=== PATIENT | male | born 1970 | race Caucasian/White ===

== ENCOUNTER 2017-08-21 19:56 | Emergency (ER) | payer MEDICAID ==
--- NOTE | 2017-08-21 20:11 | EDM.PDOC ---
ED HPI GENERAL MEDICAL PROBLEM - General Chief Complaint: ENT Problem Stated Complaint: nose bleed Time Seen by Provider: 08/21/17 19:56 Source of Information: Reports: Patient. Denies: Old Records (No [facility] records available) History Limitations: Reports: No Limitations - History of Present Illness INITIAL COMMENTS - FREE TEXT/NARRATIVE: The patient drove himself to the emergency room for evaluation of recurrent bilateral epistaxis with some clot formation today with symptoms starting at about 22:00 hours yesterday evening. Note that the patient did have a bilateral frontal headache at that time and did take 4 baby aspirin tablets prior to onset of his epistaxis as treatment for his headache. He does not have a previous history of chronic anticoagulation use, recurrent epistaxis, etc.. He did try ice packs to the nose and nasal packing with tissues with no improvement in symptoms. No history of recent visual changes, diplopia, change in mental status, or other change in neurological status. The patient also denies any recent fever, cough, wheezing, dyspnea, etc.. No recent history of abdominal pain, heartburn, nausea, diarrhea, melena, gross hematochezia, or any food intolerance, including fatty foods, etc.. The patient denies any chest pain /pressure, heart flutter, dizziness, orthostasis, orthopnea, diaphoresis, paresthesias, recent decreased exercise tolerance, or any other anginal-type symptoms. He patient denies recent injury, any pain or headache at this time. Note that he has been noncompliant with his blood pressure medication for at least one month. Onset: Gradual Onset Date: 08/20/17 Onset Time: 22:00 Duration: Getting Worse, Intermittent Location: Reports: Lower Extremity, Left (No pain) Quality: Reports: Same as Previous Episode (Distant episode of epistaxis) Severity: Moderate Improves with: Reports: None Worsens with: Reports: None Context: Reports: Other (As above) Associated Symptoms: Reports: Headaches (Resolved as above). Denies: Confusion , Chest Pain, Cough, Diaphoresis, Fever/Chills, Malaise, Nausea/Vomiting, Shortness of Breath, Weakness Treatments CORRECTIVE THERAPY AIDE: Reports: Aspirin (As above), Cold Therapy (As above), Home Treatments (As above) - Related Data Allergies Allergy/AdvReac Type Severity Reaction Status Date / Time fentanyl Allergy Other Verified 08/21/17 20:22 Home Meds: Home Meds . [Unable to Verify Home Med List] 08/21/17 [History] Past Medical History HEENT History: Reports: Impaired Vision, Other (See Below). Denies: Allergic Rhinitis, Cataract, Glaucoma, Hard of Hearing, Macular Degeneration, Retinal Detachment Other HEENT History: Patient wears glasses Cardiovascular History: Reports: Hypertension, Other (See Below). Denies: Afib , Aneurysm, Arrhythmia, Blood Clots/VTE/DVT, CAD, Heart Failure, Heart Murmur, High Cholesterol, FL, PVD, Syncope Other Cardiovascular History: Patient does not know cholesterol status Respiratory History: Reports: Intubation, Previous. Denies: Asthma, COPD, Intubation, Difficult, PE, Pneumothorax, Sleep Apnea, TB Gastrointestinal History: Reports: None. Denies: Celiac Disease, Cholelithiasis , Chronic Constipation, Chronic Diarrhea, Fecal Incontinence, Gastritis, GERD, GI Bleed, Hepatitis, Inflammatory Bowel Disease, Irritable Bowel Syndrome, Jaundice, Pancreatitis, PUD Genitourinary History: Reports: Chronic Renal Insuffiency, Renal Disease, Other (See Below). Denies: BPH, Dialysis, Renal Calculus, STD, Urinary Incontinence, UTI, Recurrent Other Genitourinary History: Stage III chronic renal insufficiency with no NSAIDs use recommended Musculoskeletal History: Reports: Arthritis, Back Pain, Chronic, Neck Pain, Chronic, Osteoarthritis. Denies: Amputation, Fracture, Gout, RA, SLE Neurological History: Reports: Neuropathy, Peripheral. Denies: Cerebral Aneurysms, Concussion, CVA, Headaches, Chronic, Head Trauma, Migraines, MS, Parkinson's, Seizure, TIA Psychiatric History: Reports: Anxiety. Denies: Abuse, Victim of, ADD, ADHD, Addiction, Depression, Psych Hospitalization(s), PTSD, Suicide Attempt, Suicidal Ideation Endocrine/Metabolic History: Reports: None. Denies: Diabetes, Type I, Diabetes , Type II, Diabetes Mellitus, Type 3c, Hypothyroidism, IDDM Hematologic History: Reports: Other (See Below). Denies: Anemia, Blood Transfusion(s), Iron Deficiency Other Hematologic History: Possible polycythemia Immunologic History: Reports: None. Denies: AIDS, HIV, SLE Oncologic (Cancer) History: Reports: None. Denies: Basal Cell Carcinoma, Hodgkin's Lymphoma, Leukemia, Lymphoma, Malignant Melanoma, Non-Hodgkin's Lymphoma, Squamous Cell Carcinoma Dermatologic History: Reports: None. Denies: Eczema, Psoriasis - Infectious Disease History Infectious Disease History: Reports: Chicken Pox. Denies: C-Difficile, Measles , Meningitis, Mononucleosis, MRSA, Mumps, Pertussis (Whooping Cough), Rheumatic Fever, Rubella, Scarlet Fever, Shingles, TB, VRE - Past Surgical History Head Surgeries/Procedures: Reports: None HEENT Surgical History: Reports: Oral Surgery, Other (See Below). Denies: Adenoidectomy, Cataract Surgery, Eye Surgery, Laser Surgery, LASIK, Myringotomy w Tube(s), Naso-Sinus Surgery, Tonsillectomy Other HEENT Surgeries/Procedures: Warren teeth extraction 4 in 2017 Cardiovascular Surgical History: Reports: None. Denies: Varicose Respiratory Surgical History: Reports: Other (See Below). Denies: Thoracentesis Other Respiratory Surgeries/Procedures: Rib resection for use in spinal surgery as below GI Surgical History: Reports: None. Denies: Appendectomy, Cholecystectomy, Colonoscopy, EGD, Hernia, Abdominal, Hernia, Inguinal, Hernia Repair/Other Male Surgical History: Reports: Circumcision, Other (See Below). Denies: Vasectomy Other Male Surgeries/Procedures: Circumcision as an infant Endocrine Surgical History: Reports: None. Denies: Thyroid Biopsy Neurological Surgical History: Reports: C-Spine, Spinal Fusion, Other (See Below ). Denies: Discectomy, Laminectomy, Lumbar Spine, Sacral Spine, Vertebroplasty Other Neurological Surgeries/Procedures: C1-C2 spinal fusion in February 2013 with previous additional C5-7 spinal fusion July 2012 secondary to Workmen's Compensation injury Musculoskeletal Surgical History: Reports: Carpal Tunnel, Ganglion Cyst, Other ( See Below). Denies: Arthroscopic Procedure, Joint Replacement, ORIF, Shoulder Surgery Other Musculoskeletal Surgeries/Procedures:: Ganglion cyst removal from his wrists bilaterally at age 13 Oncologic Surgical History: Reports: None Dermatological Surgical History: Reports: None Social & Family History - Tobacco Use Smoking Status *Q: Current Every Day Smoker Tobacco Use Within Last Twelve Months: Cigarettes Years of Tobacco use: 30 Packs/Tins Daily: 2 Packs/Tins Daily Comment: Started smoking cigarettes at age 16 and started using chewing tobacco at age 12 with no chewing tobacco use since age 42 and maximum use of 1 tin per day Used Tobacco, but Quit: No Smoking Cessation Information Provided To Patient: Yes Second Hand Smoke Exposure: No Second Hand Smoke Education Provided: No - Caffeine Use Caffeine Use: Reports: Coffee (1 1/2 pots per day), Soda (1 soda per day). Denies: Energy Drinks, Tea - Alcohol Use Alcohol Use History: Yes Days Per Week of Alcohol Use: 0 Number of Drinks Per Day Comment: 2 previous DWIs last in 2001 with no alcohol use since 2017. He denies previous alcohol treatment, abuse, etc. Alcohol Use in Last Twelve Months: No - Recreational Drug Use Recreational Drug Use: No Drug Use in Last 12 Months: No Recreational Drug Type: Denies: Amphetamines (Speed), Cocaine, Flunitrazepam, Heroin, Inhalants (Glues, Solvents, Aerosols), LSD (Acid), Marijuana/Hashish, Methamphetamine, Morphine, Oxycodone - Living Situation & Occupation Living situation: Reports: Single (2 children), Alone Occupation: Disabled (Disability since 2011 secondary to a Workmen's Compensation injury when a pipe hit his neck with history of chronic neck pain and surgeries as above) ED ROS ENT - Review of Systems Review Of Systems: ROS reveals no pertinent complaints other than HPI. ED EXAM, ENT - Physical Exam Exam: See Below Exam Limited By: No Limitations General Appearance: Alert, WD/WN, No Apparent Distress Eye Exam: Bilateral Eye: EOMI, Normal Inspection (No nystagmus. Patient wearing glasses), PERRL Ears: Normal External Exam, Normal Canal, Hearing Grossly Normal, Normal TMs Nose: Active Bleeding (Moderate bilateral epistaxis with bleeding site not visible secondary to active bleeding, including clots, etc. Nasal speculum exam was performed bilaterally.). No: Nasal Ecchymosis, Foreign Body Mouth/Throat: Normal Inspection, Normal Gums, Normal Lips, Normal Oropharynx, Normal Teeth Head: Atraumatic, Normocephalic. No: Facial Swelling, Facial Tenderness, Sinus Tenderness Neck: Normal Inspection, Supple, Non-Tender, Full Range of Motion. No: Lymphadenopathy (L), Lymphadenopathy (R), Thyromegaly Respiratory/Chest: No Respiratory Distress, Lungs Clear, Normal Breath Sounds, No Accessory Muscle Use, Chest Non-Tender. No: Pleural Rub, Retractions Cardiovascular: Normal Peripheral Pulses, No Edema, No Gallop, No JVD, No Murmur , No Rub, Tachycardia (Mild to moderate with regular rhythm). No: Gallop/S3, Gallop/S4, Friction Rub GI/Abdominal: Normal Bowel Sounds, Soft, Non-Tender, No Organomegaly, No Distention, No Abnormal Bruit, No Mass, Other (Obese). No: Guarding (Male) Exam: Deferred Rectal (Males) Exam: Deferred Back: Normal Inspection, Full Range of Motion. No: CVA Tenderness (L), CVA Tenderness (R), Muscle Spasm Extremities: Normal Inspection, Normal Range of Motion, Non-Tender, No Pedal Edema, Normal Capillary Refill Neurological: Alert, Oriented, CN II-XII Intact, Normal Cognition, Normal Gait, No Motor/Sensory Deficits Psychiatric: Normal Affect, Normal Mood Skin: Warm, Dry, Intact, Normal Color, No Rash. No: Diaphoretic, Ecchymosis, Jaundice, Petechiae, Wound/Incision Lymphatic: No Adenopathy ED ENT PROCEDURES - Epistaxis Procedure Indication: Epistaxis, Uncontrolled Recent anticoagulants/antiplatlets: Yes (Aspirin) Uncontrolled HTN: Yes Recent septal/nasal surgery: No Site of bleeding: Right Nare, Left Nare, Anterior Clearing of clots: Patient Blew Nose Topical Meds: Other (None) Ice pack to area: No Anterior Packing: Petrolatum Guaze Strip (Bilateral 1/2 inch) Complications: No Course - Vital Signs Last Recorded V/S: Last Vital Signs Temp 37.2 C 08/21/17 20:12 Pulse 99 08/21/17 22:22 Resp 17 08/21/17 22:22 BP 174/97 H 08/21/17 22:22 Pulse Ox 98 08/21/17 22:22 Vital Signs - 24 hr 08/21/17 08/21/17 08/21/17 20:12 20:40 21:00 Temperature [ 37.2 C Temporal] Pulse, 114 H 109 H 92 Peripheral [ Left Pulse Oximetry] Respiratory 22 H 19 20 Rate Blood Pressure Blood Pressure 215/149 H [Left Upper Arm ] Blood Pressure 201/124 H 180/142 H [Right Upper Arm] O2 Sat by Pulse 97 97 96 Oximetry 08/21/17 08/21/17 08/21/17 21:15 21:28 21:30 Temperature [ Temporal] Pulse, 89 91 Peripheral [ Left Pulse Oximetry] Respiratory 19 24 H Rate Blood Pressure 188/108 H Blood Pressure [Left Upper Arm ] Blood Pressure 197/108 H 188/108 H [Right Upper Arm] O2 Sat by Pulse 95 95 Oximetry 08/21/17 08/21/17 08/21/17 21:43 21:58 22:22 Temperature [ Temporal] Pulse, 99 99 Peripheral [ Left Pulse Oximetry] Respiratory 25 H 17 Rate Blood Pressure 181/113 H Blood Pressure [Left Upper Arm ] Blood Pressure 181/113 H 174/97 H [Right Upper Arm] O2 Sat by Pulse 97 98 Oximetry - Orders/Labs/Meds Orders: Active Orders 24 hr Category Date Time Status Cardiac Monitoring [RC] . DIRECTED Care 08/21/17 20:25 Active Peripheral IV Care [RC] . DIRECTED Care 08/21/17 20:24 Active Nitroglycerin [Nitrostat] Med 08/21/17 21:28 Stat 0.4 mg SL ONETIME STA Nitroglycerin [Nitrostat] Med 08/21/17 21:53 Stat 0.4 mg SL ONETIME STA Sodium Chloride 0.9% [Saline Flush] Med 08/21/17 20:24 Active 10 ml FLUSH ASDIRECTED PRN Obtain Past Medical Record [OM.PC] Routine Oth 08/21/17 20:11 Active Peripheral IV Insertion Adult [OM.PC] Routine Oth 08/21/17 20:24 Ordered Medication Orders Nitroglycerin (Nitrostat) 0.4 mg SL ONETIME STA Stop: 08/22/17 21:29 Last Admin: 08/21/17 21:30 Dose: 0.4 mg Nitroglycerin (Nitrostat) 0.4 mg SL ONETIME STA Stop: 08/22/17 21:54 Last Admin: 08/21/17 21:58 Dose: 0.4 mg Sodium Chloride (Saline Flush) 10 ml FLUSH ASDIRECTED PRN PRN Reason: Keep Vein Open Last Admin: 08/21/17 21:12 Dose: 10 ml Admin: 08/21/17 20:49 Dose: 10 ml Labs: Laboratory Tests 08/21/17 08/21/17 08/21/17 Range/Units 20:38 20:38 20:38 WBC 11.8 H (4.0-10.2) K/uL RBC 5.67 H (4.33-5.41) M/uL Hgb 16.8 (13.1-16.8) g/dL Hct 48.0 (39.0-49.0) % MCV 84.7 (84.0-98.0) fL MCH 29.6 (28.2-33.3) pg MCHC 35.0 (31.7-36.0) g/dL RDW 14.2 H (11.2-14.1) % Plt Count 164 (150-350) K/uL Neut % (Auto) 64.9 (45.0-80.0) % Lymph % (Auto) 25.8 (10.0-50.0) % Towner % (Auto) 8.3 (2.0-14.0) % Eos % (Auto) 0.7 (0.0-5.0) % Baso % (Auto) 0.3 (0.0-2.0) % Neut # (Auto) 7.66 H (1.40-7.00) K/uL Lymph # (Auto) 3.04 (0.50-3.50) K/uL Towner # (Auto) 0.98 (0.00-1.00) K/uL Eos # (Auto) 0.08 (0.00-0.50) K/uL Baso # (Auto) 0.04 (0.00-0.20) K/uL PT 10.4 (9.8-11.7) SEC INR 1.0 APTT 23.6 (22.1-29.8) SEC Sodium 143 (136-145) mmol/L Potassium 3.2 L (3.5-5.1) mmol/L Chloride 103 (98-107) mmol/L Carbon Dioxide 33.2 H (21.0-32.0) mmol/L BUN 35 H (7-18) mg/dL Creatinine 1.64 H (0.51-1.17) mg/dL Est Cr Clr Drug Dosing 54.45 mL/min Estimated GFR (MDRD) 45 mL/min Glucose 160 H (74-106) mg/dL Lactic Acid (0.4-2.0) mmol/L Calcium 8.8 (8.5-10.1) mg/dL Total Bilirubin 0.4 (0.2-1.0) mg/dL AST 18 (15-37) U/L ALT 25 (12-78) U/L Alkaline Phosphatase 105 (46-116) IU/L Total Protein 7.3 (6.4-8.2) g/dL Albumin 3.4 (3.4-5.0) g/dL TSH, Ultra Sensitive 3.772 H (0.358-3.740) mIU/mL 08/21/17 Range/Units 20:38 WBC (4.0-10.2) K/uL RBC (4.33-5.41) M/uL Hgb (13.1-16.8) g/dL Hct (39.0-49.0) % MCV (84.0-98.0) fL MCH (28.2-33.3) pg MCHC (31.7-36.0) g/dL RDW (11.2-14.1) % Plt Count (150-350) K/uL Neut % (Auto) (45.0-80.0) % Lymph % (Auto) (10.0-50.0) % Towner % (Auto) (2.0-14.0) % Eos % (Auto) (0.0-5.0) % Baso % (Auto) (0.0-2.0) % Neut # (Auto) (1.40-7.00) K/uL Lymph # (Auto) (0.50-3.50) K/uL Towner # (Auto) (0.00-1.00) K/uL Eos # (Auto) (0.00-0.50) K/uL Baso # (Auto) (0.00-0.20) K/uL PT (9.8-11.7) SEC INR APTT (22.1-29.8) SEC Sodium (136-145) mmol/L Potassium (3.5-5.1) mmol/L Chloride (98-107) mmol/L Carbon Dioxide (21.0-32.0) mmol/L BUN (7-18) mg/dL Creatinine (0.51-1.17) mg/dL Est Cr Clr Drug Dosing mL/min Estimated GFR (MDRD) mL/min Glucose (74-106) mg/dL Lactic Acid 1.6 (0.4-2.0) mmol/L Calcium (8.5-10.1) mg/dL Total Bilirubin (0.2-1.0) mg/dL AST (15-37) U/L ALT (12-78) U/L Alkaline Phosphatase (46-116) IU/L Total Protein (6.4-8.2) g/dL Albumin (3.4-5.0) g/dL TSH, Ultra Sensitive (0.358-3.740) mIU/mL Meds: Medications Generic Name Dose Route Start Last Admin Trade Name Freq PRN Reason Stop Dose Admin Nitroglycerin 0.4 mg 08/21/17 21:28 08/21/17 21:30 Nitrostat SL 08/22/17 21:29 0.4 mg ONETIME STA Administration Nitroglycerin 0.4 mg 08/21/17 21:53 08/21/17 21:58 Nitrostat SL 08/22/17 21:54 0.4 mg ONETIME STA Administration Sodium Chloride 10 ml 08/21/17 20:24 08/21/17 21:12 Saline Flush FLUSH 10 ml ASDIRECTED PRN Administration Keep Vein Open Discontinued Medications Generic Name Dose Route Start Last Admin Trade Name Freq PRN Reason Stop Dose Admin Hydralazine HCl 10 mg 08/21/17 21:52 08/21/17 22:00 Apresoline IVPUSH 08/21/17 21:53 10 mg ONETIME ONE Administration Labetalol HCl 20 mg 08/21/17 20:25 08/21/17 20:48 Normodyne IVPUSH 08/21/17 20:26 20 mg ONETIME ONE Administration Protocol Labetalol HCl 20 mg 08/21/17 21:08 08/21/17 21:12 Normodyne IVPUSH 08/21/17 21:09 20 mg ONETIME ONE Administration Protocol Potassium Chloride 40 meq 08/21/17 21:15 08/21/17 21:23 Klor-Con M20 PO 08/21/17 21:16 Not Given ONETIME ONE - Radiology Interpretation Free Text/Narrative:: gambling monitor showed normal sinus rhythm in the 90s after initial dose of labetalol. No extrasystoles or other arrhythmia noted. Departure - Departure Time of Disposition: 22:30 Disposition: Home, Self-Care 01 Condition: Good Clinical Impression: Epistaxis, Renal insufficiency, Tobacco abuse counseling, Hypothyroidism ( acquired), Hypokalemia, Hyperglycemia Hypertension Qualifiers: Hypertension type: essential hypertension Qualified Code(s): I10 - Essential ( primary) hypertension Osteoarthritis Qualifiers: Osteoarthritis location: multiple joints Osteoarthritis type: primary Qualified Code(s): M15.0 - Primary generalized (osteo)arthritis - Discharge Information Instructions: Labetalol injection, Hypothyroidism, Hypertension, [id number], Nitroglycerin sublingual tablets, Nosebleed, Adult, [id number] Forms: ED Department Discharge Additional Instructions: 1. Follow-up with local provider and/or your regular provider late tomorrow afternoon for reevaluation of your blood pressure and removal of nasal packing. Consider silver nitrate cauterization and/or ENT referral at that time depending on your symptoms. CBC is to be repeated at follow up tomorrow with additional glycosylated hemoglobin secondary to your elevated blood sugar today. 2. Strict compliance with previous recommendations of no aspirin or other NSAIDs 3. Strict compliance with all medical therapy. Contact your regular provider CARLINE tomorrow morning informing him that you cannot afford your current medical therapy and request a cheaper alternative, which should be started CARLINE tomorrow a.m.. 4. Decrease caffeine intake as directed 5. Stop all tobacco use CARLINE as directed/per provided information and consider contacting Quit LIne, etc.. 6. Immediately after this visit verify that your cellular telephone's voicemail has been activated and is empty. Also verify that your home telephone 's answering machine is operating properly and has space to receive messages. Note that it is sometimes necessary for us to be able to contact you at a later date to discuss your medical care. 7. Tylenol 650 mg by mouth every 4 hours when necessary as directed. 8. Nasal pressure/clips, ice packs to the neck, and/or Afrin spray 2 nasal packing as needed/discussed 9. Otherwise follow-up with your regular provider within the next 2 weeks for repeat blood pressure check and recommended repeat basic metabolic panel and TSH 10. Discuss with your regular provider tomorrow morning your current potassium level of only 3.2 with further recommendations from them concerning your potassium chloride medical therapy at that time. Immediately take 40 mEq of potassium chloride at home tonight. - Problem List & Annotations (1) Epistaxis SNOMED Code(s): 087653821 Code(s): R04.0 - EPISTAXIS Status: Acute Priority: High Current Visit: No Onset Date: 08/20/17 Annotation/Comment:: Bilateral nasal packing with 1/ 2 inch gauze strips with excellent results and no significant epistaxis at discharge. Close follow-up by regular provider. Hypertension contributing factor to patient's epistaxis. Secondary to poor visibility silver nitrate cauterization could not be performed today. Note some mild leukocytosis likely secondary to stress reaction with no direct evidence of infection. CBC to be repeated tomorrow at follow-up. (2) Hypertension SNOMED Code(s): 32295009 Code(s): I10 - ESSENTIAL (PRIMARY) HYPERTENSION Status: Acute Priority: High Current Visit: No Annotation/Comment:: Hypertensive crisis secondary to medication noncompliance as above. Patient states that he could no longer afford his medications, however he does not know which medications he was taking. He will contact his regular provider tomorrow as per discharge instructions. No evidence of neurological or cardiac complications. Aggressive IV treatment as above. NTG SL used for blood pressure control with no chest pain or anginal complaints. Medication compliance strongly encouraged. Close follow-up by local provider as per discharge instructions. Patient devised to decrease caffeine intake. Qualifiers: Hypertension type: essential hypertension Qualified Code(s): I10 - Essential (primary) hypertension (3) Osteoarthritis SNOMED Code(s): 042531179 Code(s): M19.90 - UNSPECIFIED OSTEOARTHRITIS, UNSPECIFIED SITE Status: Chronic Priority: Medium Current Visit: No Annotation/Comment:: Stable by patient history, including chronic neck pain from previous Workmen's Compensation injury Qualifiers: Osteoarthritis location: multiple joints Osteoarthritis type: primary Qualified Code(s): M15.0 - Primary generalized (osteo)arthritis (4) Renal insufficiency SNOMED Code(s): 091756148, 518316881 Code(s): N28.9 - DISORDER OF KIDNEY AND URETER, UNSPECIFIED Status: Chronic Priority: Medium Current Visit: No Annotation/Comment:: Stable by history (5) Tobacco abuse counseling SNOMED Code(s): 566589879, 430294226, 965437272 Code(s): Z71.6 - TOBACCO ABUSE COUNSELING Status: Chronic Priority: Medium Current Visit: No Annotation/Comment:: Tobacco cessation strongly encouraged information provided. Patient congratulated about stopping chewing tobacco use. (6) Hyperglycemia SNOMED Code(s): 50760316 Code(s): R73.9 - HYPERGLYCEMIA, UNSPECIFIED Status: Acute Priority: Medium Current Visit: No Onset Date: ~08/21/17 Annotation/Comment:: No known previous history of diabetes. Glycosylated hemoglobin to be conducted tomorrow as per discharge instructions. (7) Hypokalemia SNOMED Code(s): 77964760 Code(s): E87.6 - HYPOKALEMIA Status: Chronic Priority: Medium Current Visit: No Annotation/Comment:: He apparently also has potassium at home. He refuses potassium chloride dose in this facility, however does promise to take 40 mEq immediately upon returning home (8) Hypothyroidism (acquired) SNOMED Code(s): 929569626 Code(s): E03.9 - HYPOTHYROIDISM, UNSPECIFIED Status: Acute Priority: Medium Current Visit: No Onset Date: 08/21/17 Annotation/Comment:: Close follow-up by regular provider as per discharge instructions. Synthroid not to be initiated at this time. - Problem List Review Problem List Initiated/Reviewed/Updated: Yes - My Orders Last 24 Hours: My Active Orders 08/21/17 20:11 Obtain Past Medical Record [OM.PC] Routine 08/21/17 20:24 Peripheral IV Care [RC] . DIRECTED Sodium Chloride 0.9% [Saline Flush] 10 ml FLUSH ASDIRECTED PRN Peripheral IV Insertion Adult [OM.PC] Routine 08/21/17 20:25 Cardiac Monitoring [RC] . DIRECTED 08/21/17 21:28 Nitroglycerin [Nitrostat] 0.4 mg SL ONETIME STA 08/21/17 21:53 Nitroglycerin [Nitrostat] 0.4 mg SL ONETIME STA - Assessment/Plan Last 24 Hours: My Active Orders 08/21/17 20:11 Obtain Past Medical Record [OM.PC] Routine 08/21/17 20:24 Peripheral IV Care [RC] . DIRECTED Sodium Chloride 0.9% [Saline Flush] 10 ml FLUSH ASDIRECTED PRN Peripheral IV Insertion Adult [OM.PC] Routine 08/21/17 20:25 Cardiac Monitoring [RC] . DIRECTED 08/21/17 21:28 Nitroglycerin [Nitrostat] 0.4 mg SL ONETIME STA 08/21/17 21:53 Nitroglycerin [Nitrostat] 0.4 mg SL ONETIME STA Assessment:: As above Plan: As above. Extensive precautions were given to the patient, who is in agreement with the treatment plan. See Patient Instructions for further treatment and plan.
[2017-08-21] MEDS ORDERED: Labetalol 20 MG/4 ML Syringe IVPUSH ONE ×2 (20:25→21:08)
[2017-08-21] MEDS: Sodium Chloride 0.9% 10 ML Syringe FLUSH PRN ×2 (20:49→21:12)
[2017-08-21] MEDS ORDERED: Potassium Chloride 20 MEQ Tab.ER PO ONE (21:15)
[2017-08-21] MEDS ORDERED: Nitroglycerin 0.4 MG Tab.SL SL STA ×2 (21:28→21:53)
[2017-08-21] MEDS ORDERED: hydrALAZINE 20 MG/ML SDV IVPUSH ONE (21:52)
== END 2017-08-21 22:30 | disposition home or self-care (01) ==
LOC: LL.ED 19:56
DX: I10 Essential (primary) hypertension (principal); E87.6 Hypokalemia; N28.9 Disorder of kidney and ureter, unspecified; E03.9 Hypothyroidism, unspecified; M15.0 Primary generalized (osteo)arthritis; F17.210 Nicotine dependence, cigarettes, uncomplicated; R73.9 Hyperglycemia, unspecified; Z88.8 Allergy status to other drugs, medicaments and biological substances
CPT/HCPCS: 30901; 36415; 80053; 83605; 84443; 85025; 85610; 85730; 96374; 96375; 99283; 99284; A9270-GY; J0360; J3490; J7050

== ENCOUNTER 2017-08-22 16:44 | Inpatient (IN) | payer MEDICAID ==
[2017-08-22] MEDS ORDERED: Metoprolol Tartrate 5 MG/5 ML SDV IVPUSH ONE ×2 (17:01→17:30)
[2017-08-22] MEDS ORDERED: Aspirin 81 MG Tab.Chew CHEW ONE (17:01)
[2017-08-22] MEDS ORDERED: Famotidine 20 MG/2 ML SDV IVPUSH ONE (17:01)
[2017-08-22] MEDS ORDERED: Sodium Chloride 0.9% 10 ML Syringe FLUSH PRN ×2 (17:01→19:17)
--- NOTE | 2017-08-22 17:01 | EDM.PDOC ---
ED HPI GENERAL MEDICAL PROBLEM - General Chief Complaint: Cardiovascular Problem Stated Complaint: clinic sent over d/t uncontrolled HTN Time Seen by Provider: 08/22/17 17:01 Source of Information: Reports: Patient, Family (Sister, Radha), Old Records ( [facility] EMR. No paper hospital chart available.) History Limitations: Reports: No Limitations - History of Present Illness INITIAL COMMENTS - FREE TEXT/NARRATIVE: The patient drove himself to the emergency room via private automobile for evaluation of persistent hypertension with patient referred to the emergency room by Tiffani Ernst PA-C, at [facility] in [place]. Note that I also evaluated the patient yesterday for a hypertensive crisis secondary to medication noncompliance with secondary epistaxis at that time. He did receive an additional 25 mg of Toprol XL at the [facility] at about 14:00 hours this afternoon, however no other evaluations were conducted, including blood work, x-rays, etc. The patient did contact his regular provider in [place] earlier today and was restarted on his previous Norvasc, lisinopril, and potassium which he did take this morning. Patient also has a known history of sleep apnea and has been noncompliant with his CPAP secondary to mask intolerance. The patient denies any chest pain/pressure, heart flutter, dizziness, orthostasis, orthopnea, diaphoresis, paresthesias, recent decreased exercise tolerance, or any other anginal-type symptoms. No recent history of abdominal pain, heartburn, nausea, diarrhea, melena, gross hematochezia, or any food intolerance, including fatty foods, etc., although his stools are somewhat dark secondary to his epistaxis, which is well-controlled at this time with his nasal packing. The patient also denies any recent fever, cough, wheezing, dyspnea, etc.. No history of recent headaches, visual changes, diplopia, change in mental status, or other change in neurological status. He is having some exacerbation of his chronic nonspecific neck pain, including 5/10 spasms. Onset: Gradual Onset Date: 08/20/17 Onset Time: 22:00 Duration: Chronic, Getting Worse Location: Reports: Neck. Denies: Head, Face, Chest, Abdomen, Back, Pelvis, Upper Extremity, Left, Upper Extremity, Right, Radiates to Quality: Reports: Same as Previous Episode, Other (Spasms ) Severity: Moderate Improves with: Reports: None Worsens with: Reports: None Context: Reports: Other (As above) Associated Symptoms: Denies: Confusion, Chest Pain, Cough, Diaphoresis, Fever/ Chills, Headaches, Loss of Appetite, Malaise, Nausea/Vomiting, Seizure, Shortness of Breath, Syncope, Weakness Treatments [employer]: Reports: Other Medication(s) (As above) Bilateral Posterior Neck Pain Score (Numeric/FACES): 5 - Related Data Allergies Allergy/AdvReac Type Severity Reaction Status Date / Time fentanyl Allergy Other Verified 08/22/17 16:56 Home Meds: Home Meds Aspirin 81 mg PO DAILY 08/22/17 [History] Lisinopril 10 mg PO DAILY 08/22/17 [History] Metoprolol Succinate 25 mg PO DAILY 08/22/17 [History] Potassium Chloride [Klor-Con M20] 20 meq PO TID 08/22/17 [History] amLODIPine Besylate [Norvasc] 10 mg PO DAILY 08/22/17 [History] Past Medical History HEENT History: Reports: Impaired Vision, Other (See Below). Denies: Allergic Rhinitis, Cataract, Glaucoma, Hard of Hearing, Macular Degeneration, Retinal Detachment Other HEENT History: Patient wears glasses Cardiovascular History: Reports: Hypertension, Other (See Below). Denies: Afib , Aneurysm, Arrhythmia, Blood Clots/VTE/DVT, CAD, Heart Failure, Heart Murmur, High Cholesterol, MS, PVD, Syncope Other Cardiovascular History: Patient does not know cholesterol status Respiratory History: Reports: Intubation, Previous, Sleep Apnea, Other (See Below). Denies: Asthma, COPD, Intubation, Difficult, PE, Pneumothorax, Pulmonary Fibrosis, TB Other Respiratory History: He is noncompliant with his CPAP. Gastrointestinal History: Reports: None. Denies: Celiac Disease, Cholelithiasis , Chronic Constipation, Chronic Diarrhea, Fecal Incontinence, Gastritis, GERD, GI Bleed, Hepatitis, Inflammatory Bowel Disease, Irritable Bowel Syndrome, Jaundice, Pancreatitis, PUD Genitourinary History: Reports: Chronic Renal Insuffiency, Renal Disease, Other (See Below). Denies: BPH, Dialysis, Renal Calculus, STD, Urinary Incontinence, UTI, Recurrent Other Genitourinary History: Stage III chronic renal insufficiency with no NSAIDs use recommended Musculoskeletal History: Reports: Arthritis, Back Pain, Chronic, Neck Pain, Chronic, Osteoarthritis. Denies: Amputation, Fracture, Gout, RA, SLE Neurological History: Reports: Neuropathy, Peripheral. Denies: Cerebral Aneurysms, Concussion, CVA, Headaches, Chronic, Head Trauma, Migraines, MS, Parkinson's, Seizure, TIA Psychiatric History: Reports: Anxiety. Denies: Abuse, Victim of, ADD, ADHD, Addiction, Depression, Psych Hospitalization(s), PTSD, Suicide Attempt, Suicidal Ideation Endocrine/Metabolic History: Reports: Hypothyroidism, Other (See Below). Denies : Diabetes, Type I, Diabetes, Type II, Diabetes Mellitus, Type 3c, IDDM Other Endocrine/Metabolic History: Borderline hypothyroidism Hematologic History: Reports: Other (See Below). Denies: Anemia, Blood Transfusion(s), Iron Deficiency Other Hematologic History: Possible polycythemia Immunologic History: Reports: None. Denies: AIDS, HIV, SLE Oncologic (Cancer) History: Reports: None. Denies: Basal Cell Carcinoma, Hodgkin's Lymphoma, Leukemia, Lymphoma, Malignant Melanoma, Non-Hodgkin's Lymphoma, Squamous Cell Carcinoma Dermatologic History: Reports: None. Denies: Eczema, Psoriasis - Infectious Disease History Infectious Disease History: Reports: Chicken Pox. Denies: C-Difficile, Measles , Meningitis, Mononucleosis, MRSA, Mumps, Pertussis (Whooping Cough), Rheumatic Fever, Rubella, Scarlet Fever, Shingles, TB, VRE - Past Surgical History Head Surgeries/Procedures: Reports: None HEENT Surgical History: Reports: Oral Surgery, Other (See Below). Denies: Adenoidectomy, Cataract Surgery, Eye Surgery, Laser Surgery, LASIK, Myringotomy w Tube(s), Naso-Sinus Surgery, Tonsillectomy Other HEENT Surgeries/Procedures: [place] teeth extraction 4 in 2017 Cardiovascular Surgical History: Reports: None. Denies: Varicose, Vascular Surgery Respiratory Surgical History: Reports: Other (See Below). Denies: Thoracentesis Other Respiratory Surgeries/Procedures: Rib resection for use in spinal surgery as below GI Surgical History: Reports: None. Denies: Appendectomy, Cholecystectomy, Colonoscopy, EGD, Hernia, Abdominal, Hernia, Inguinal, Hernia Repair/Other Male Surgical History: Reports: Circumcision, Other (See Below). Denies: Vasectomy Other Male Surgeries/Procedures: Circumcision as an Endocrine Surgical History: Reports: None. Denies: Thyroid Biopsy Neurological Surgical History: Reports: C-Spine, Spinal Fusion, Other (See Below ). Denies: Discectomy, Laminectomy, Lumbar Spine, Sacral Spine, Vertebroplasty Other Neurological Surgeries/Procedures: C1-C2 spinal fusion in February 2013 with previous additional C5-7 spinal fusion July 2012 secondary to Workmen's Compensation injury Musculoskeletal Surgical History: Reports: Carpal Tunnel, Ganglion Cyst, Other ( See Below). Denies: Arthroscopic Procedure, Joint Replacement, ORIF, Shoulder Surgery Other Musculoskeletal Surgeries/Procedures:: Ganglion cyst removal from his wrists bilaterally at age 13 Oncologic Surgical History: Reports: None Dermatological Surgical History: Reports: None - Past Imaging History Past Imaging History: Reports: Sleep Study (In about 2011) Social & Family History - Family History HEENT: Reports: None. Denies: Glaucoma, Macular Degeneration, Retinal Detachment Cardiac: Reports: Bypass, High Cholesterol, Hypertension, MS, Other (See Below) . Denies: Afib, Aneurysm, Arrhythmia, Blood Clots/VTE/DVT, Heart Failure, Pacemaker, PVD/COD, Stent, Syncope Other Cardiac Family History: Father with history of MS in his 60s with history of CABG with history of hypertension and hyperlipidemia. Hypertension in brother and maternal grandmother. Hyperlipidemia in brother and sister. Maternal grandmother with history of fatal MS in her 80s. Paternal grandmother with fatal MS in her 80s. Respiratory: Reports: None. Denies: Asthma, COPD, PE, Pneumothorax, Sleep Apnea GI: Reports: Other (See Below). Denies: Bowel Obstruction, Celiac Disease, Cholelithiasis, Chronic Constipation, Chronic Diarrhea, Colon Polyps, Diverticulosis, GERD, GI bleed, Hiatal Hernia, Inflammatory Bowel Disease, Irritable Bowel Syndrome, PUD Other GI Family History: Brother with unknown type of colonic polyps : Reports: None. Denies: Dialysis, Renal Calculus, Renal Disease/ Insufficiency OBGYN: Reports: None. Denies: Dysfunctional uterine bleeding, Endometriosis, Recurrent Spontaneous Musculoskeletal: Reports: Arthritis, Osteoarthritis, RA, Other (See Below). Denies: Gout, SLE Other Musculoskeletal Family History: Maternal grandmother with rheumatoid arthritis and osteoarthritis Neurological: Reports: Alzheimers Disease, Dementia, Migraines, Parkinson's, Other (See Below). Denies: Cerebral Aneurysms, CVA, MS, Neuropathy, Peripheral , Seizure, TIA Other Neurological Family History: Brother, niece, and sister with migraine headaches. Paternal grandfather with organic brain syndrome. Parkinson's disease in paternal uncle. Psychiatric: Reports: Anxiety, Depression, PTSD, Other (See Below). Denies: Abuse, Victim of, ADD, ADHD, Bipolar, Panic Attack, Psych Hospitalization(s), Suicide Attempt Other Psychiatric Family History: Anxiety depression disorder in father, daughter, brother and sister. Sister with PTSD secondary to an accident. Endocrine/Metabolic: Reports: Diabetes, type II, Hypothyroidism, IDDM, Other ( See Below). Denies: Diabetes, Type I, Diabetes Mellitus, Type 3c Other Endocrine/Metabolic Family History: Maternal grandmother and maternal uncle with IDDM. Sister with possible hypothyroidism. Hematologic: Reports: None. Denies: Anemia, SLE Immunologic: Reports: None. Denies: AIDS, HIV, SLE Dermatologic: Reports: None. Denies: Eczema, Psoriasis Oncologic: Reports: Cervix, Colon, Lung, Metastatic, Other (See Below). Denies : Breast, Hodgkin's Lymphoma, Leukemia, Non-Hodgkin's Lymphoma, Ovarian, Prostate, Skin, Thyroid, Uterine Other Oncologic Family History: Father with colon cancer in his 60s. Mother with history of fatal metastatic small cell lung cancer in her early 50s with history of tobacco use. Maternal aunt with unknown type of fatal cancer in her 60s. Sister with cervical cancer in her in her early 30s. - Tobacco Use Smoking Status *Q: Current Every Day Smoker Tobacco Use Within Last Twelve Months: Cigarettes Years of Tobacco use: 30 Packs/Tins Daily: 2 Packs/Tins Daily Comment: Started smoking cigarettes at age 16 and started using chewing tobacco at age 12 with no chewing tobacco use since age 42 with a maximum use of one tin per day Used Tobacco, but Quit: No Smoking Cessation Information Provided To Patient: Yes Second Hand Smoke Exposure: No Second Hand Smoke Education Provided: No - Caffeine Use Caffeine Use: Reports: Coffee (1 1/2 pots per day), Soda (1 soda per day). Denies: Energy Drinks, Tea - Alcohol Use Alcohol Use History: Yes Days Per Week of Alcohol Use: 0 Number of Drinks Per Day Comment: He has not used alcohol for about one year. He did have 2 previous DWIs last in 2001 with no previous history of alcohol abuse, treatment, etc. by his history Alcohol Use in Last Twelve Months: No - Recreational Drug Use Recreational Drug Use: No Drug Use in Last 12 Months: No Recreational Drug Type: Denies: Amphetamines (Speed), Cocaine, Heroin, Inhalants (Glues, Solvents, Aerosols), LSD (Acid), Marijuana/Hashish, Methamphetamine, Morphine, Oxycodone - Living Situation & Occupation Living situation: Reports: Single (2 children), Alone Occupation: Disabled (Disability since 2011 secondary to a Workmen's Compensation injury when a pipe hit his neck with history of chronic neck pain and surgeries as above) ED ROS GENERAL - Review of Systems Review Of Systems: ROS reveals no pertinent complaints other than HPI. ED EXAM, GENERAL - Physical Exam Exam: See Below Exam Limited By: No Limitations General Appearance: Alert, WD/WN, No Apparent Distress Eye Exam: Bilateral Eye: EOMI, Normal Fundi, Normal Inspection (No nystagmus. Patient wearing glasses), PERRL Ears: Normal External Exam, Normal Canal, Hearing Grossly Normal, Normal TMs Nose: Other (Bilateral nasal packing with no significant epistaxis) Throat/Mouth: Normal Inspection, Normal Lips, Normal Teeth, Normal Gums, Normal Oropharynx, Normal Voice, No Airway Compromise. No: Dysphagia, Perioral Cyanosis Head: Atraumatic, Normocephalic. No: Facial Swelling, Facial Tenderness, Sinus Tenderness Neck: Supple, Full Range of Motion, Tender Lateral (Mild posterior bilateral neck spasms and tenderness with scars from previous surgery noted). No: Carotid Bruit, Lymphadenopathy (L), Lymphadenopathy (R), Thyromegaly Respiratory/Chest: No Respiratory Distress, Lungs Clear, Normal Breath Sounds, No Accessory Muscle Use, Chest Non-Tender. No: Pleural Rub, Retractions Cardiovascular: Normal Peripheral Pulses, Regular Rate, Rhythm, No Edema, No Gallop, No JVD, No Murmur, No Rub. No: Gallop/S3, Gallop/S4, Friction Rub Peripheral Pulses: 2+: Radial (L), Radial (R), Dorsalis Pedis (L), Dorsalis Pedis (R) GI/Abdominal: Normal Bowel Sounds, Soft, Non-Tender, No Organomegaly, No Distention, No Abnormal Bruit, No Mass, Pelvis Stable, Other (obese). No: Guarding (Male) Exam: Deferred Rectal (Males) Exam: Deferred Back Exam: Normal Inspection, Full Range of Motion. No: CVA Tenderness (L), CVA Tenderness (R), Muscle Spasm Extremities: Normal Inspection, Normal Range of Motion, Non-Tender, No Pedal Edema, Normal Capillary Refill. No: Giorgi's Sign Neurological: Alert, Oriented, CN II-XII Intact, Normal Cognition, Normal Gait, Normal Reflexes (Negative Babinski's, finger to nose, and pronator rotation tests. No evidence of facial paresis, tongue deviation, orthostasis, etc.. Excellent reverse thought processes.), No Motor/Sensory Deficits Psychiatric: Normal Affect, Normal Mood Skin Exam: Warm, Dry, Intact, Normal Color, No Rash. No: Diaphoretic, Wound/ Incision Lymphatic: No Adenopathy EKG INTERPRETATION EKG Date: 08/22/17 Time: 17:12 Rhythm: NSR Rate (Beats/Min): 83 [place]: Normal (Left cardiac axis) P-Wave: Enlarged (Moderate diffuse biphasic P waves with mild poor R-wave progression in the anterior leads) QRS: Wide (QRS interval of 0.10 seconds representing repolarization changes) ST-T: Other (T-wave inversion in leads 1, aVL, V1, and C5 through V6 with additional possible inversion in lead V2) QT: Normal MS/PQ Interval: 0.15 seconds Comparison: NA - No Prior EKG EKG Interpretation Comments: 1. Lateral wall cardiac ischemia with possible additional anterior wall ischemia 2. Probable left atrial enlargement 3. Repolarization changes Course - Vital Signs Last Recorded V/S: Last Vital Signs Temp 36.6 C 08/22/17 16:44 Pulse 74 08/22/17 18:12 Resp 19 08/22/17 18:12 BP 151/89 H 08/22/17 18:12 Pulse Ox 95 08/22/17 18:12 Vital Signs - 24 hr 08/22/17 08/22/17 08/22/17 16:44 16:57 17:12 Temperature [ 36.6 C Temporal] Pulse, Peripheral Pulse, 92 90 89 Peripheral [ Left Pulse Oximetry] Respiratory 20 18 18 Rate Blood Pressure Blood Pressure 174/105 H 171/109 H 179/104 H [Left Upper Arm ] O2 Sat by Pulse 97 97 97 Oximetry 08/22/17 08/22/17 08/22/17 17:16 17:27 17:35 Temperature [ Temporal] Pulse, 89 75 Peripheral Pulse, 78 Peripheral [ Left Pulse Oximetry] Respiratory 18 Rate Blood Pressure 171/109 H 160/106 H Blood Pressure 160/106 H [Left Upper Arm ] O2 Sat by Pulse 95 Oximetry 08/22/17 08/22/17 08/22/17 17:42 17:50 17:57 Temperature [ Temporal] Pulse, Peripheral Pulse, 74 78 Peripheral [ Left Pulse Oximetry] Respiratory 19 17 Rate Blood Pressure 163/101 H Blood Pressure 163/101 H 147/95 H [Left Upper Arm ] O2 Sat by Pulse 95 95 Oximetry 08/22/17 18:12 Temperature [ Temporal] Pulse, Peripheral Pulse, 74 Peripheral [ Left Pulse Oximetry] Respiratory 19 Rate Blood Pressure Blood Pressure 151/89 H [Left Upper Arm ] O2 Sat by Pulse 95 Oximetry - Orders/Labs/Meds Orders: Active Orders 24 hr Category Date Time Status Cardiac Monitoring [RC] . DIRECTED Care 08/22/17 17:01 Active EKG Documentation Completion [RC] ASDIRECTED Care 08/22/17 17:01 Active Peripheral IV Care [RC] . DIRECTED Care 08/22/17 17:01 Active Pulse Oximetry [RC] CONTINUOUS Care 08/22/17 17:01 Active Up With Assistance [RC] PFP Care 08/22/17 17:01 Active Vital Signs [RC] PFP Care 08/22/17 17:01 Active Nothing per Oral Now Diet [DIET] Diet 08/22/17 Breakfast Active Chest 1V Frontal [CR] Stat Exams 08/22/17 17:01 Taken Nitroglycerin [Nitro-Bid 2%] Med 08/22/17 18:00 Active 0.5 gm TOP Q6H Sodium Chloride 0.9% [Saline Flush] Med 08/22/17 17:01 Active 10 ml FLUSH ASDIRECTED PRN Obtain Past Medical Record [OM.PC] Urgent Oth 08/22/17 17:01 Active Peripheral IV Insertion Adult [OM.PC] Stat Oth 08/22/17 17:01 Ordered Resuscitation Status Stat Resus Stat 08/22/17 17:01 Ordered Medication Orders Nitroglycerin (Nitro-Bid 2%) 0.5 gm TOP Q6H WALTER Last Admin: 08/22/17 17:50 Dose: 0.5 gm Sodium Chloride (Saline Flush) 10 ml FLUSH ASDIRECTED PRN PRN Reason: Keep Vein Open Last Admin: 08/22/17 17:24 Dose: 10 ml Labs: Laboratory Tests 08/22/17 08/22/17 08/22/17 Range/Units 17:10 17:10 17:10 WBC 13.0 H (4.0-10.2) K/uL RBC 5.76 H (4.33-5.41) M/uL Hgb 17.0 H (13.1-16.8) g/dL Hct 49.0 (39.0-49.0) % MCV 85.1 (84.0-98.0) fL MCH 29.5 (28.2-33.3) pg MCHC 34.7 (31.7-36.0) g/dL RDW 14.9 H (11.2-14.1) % Plt Count 167 (150-350) K/uL Neut % (Auto) 69.7 (45.0-80.0) % Lymph % (Auto) 21.7 (10.0-50.0) % Amelia % (Auto) 7.9 (2.0-14.0) % Eos % (Auto) 0.5 (0.0-5.0) % Baso % (Auto) 0.2 (0.0-2.0) % Neut # (Auto) 9.08 H (1.40-7.00) K/uL Lymph # (Auto) 2.82 (0.50-3.50) K/uL Amelia # (Auto) 1.03 H (0.00-1.00) K/uL Eos # (Auto) 0.06 (0.00-0.50) K/uL Baso # (Auto) 0.03 (0.00-0.20) K/uL PT 10.2 (9.8-11.7) SEC INR 1.0 APTT 23.8 (22.1-29.8) SEC D-Dimer, Quantitative < 100 (0-400) ng/mL Sodium (136-145) mmol/L Potassium (3.5-5.1) mmol/L Chloride (98-107) mmol/L Carbon Dioxide (21.0-32.0) mmol/L BUN (7-18) mg/dL Creatinine (0.51-1.17) mg/dL Est Cr Clr Drug Dosing Estimated GFR (MDRD) mL/min Glucose (74-106) mg/dL Hemoglobin A1c (4.3-5.7) % Lactic Acid (0.4-2.0) mmol/L Calcium (8.5-10.1) mg/dL Magnesium (1.8-2.4) mg/dL Creatine Kinase (26-308) U/L Creatine Kinase Index (0.0-2.5) % CK-MB (CK-2) (0.00-3.60) ng/mL Troponin I (0.000-0.056) ng/mL NT-Pro-B Natriuret Pep (0-125) pg/mL 08/22/17 08/22/17 08/22/17 Range/Units 17:10 17:10 17:10 WBC (4.0-10.2) K/uL RBC (4.33-5.41) M/uL Hgb (13.1-16.8) g/dL Hct (39.0-49.0) % MCV (84.0-98.0) fL MCH (28.2-33.3) pg MCHC (31.7-36.0) g/dL RDW (11.2-14.1) % Plt Count (150-350) K/uL Neut % (Auto) (45.0-80.0) % Lymph % (Auto) (10.0-50.0) % Amelia % (Auto) (2.0-14.0) % Eos % (Auto) (0.0-5.0) % Baso % (Auto) (0.0-2.0) % Neut # (Auto) (1.40-7.00) K/uL Lymph # (Auto) (0.50-3.50) K/uL Amelia # (Auto) (0.00-1.00) K/uL Eos # (Auto) (0.00-0.50) K/uL Baso # (Auto) (0.00-0.20) K/uL PT (9.8-11.7) SEC INR APTT (22.1-29.8) SEC D-Dimer, Quantitative (0-400) ng/mL Sodium (136-145) mmol/L Potassium (3.5-5.1) mmol/L Chloride (98-107) mmol/L Carbon Dioxide (21.0-32.0) mmol/L BUN (7-18) mg/dL Creatinine (0.51-1.17) mg/dL Est Cr Clr Drug Dosing Estimated GFR (MDRD) mL/min Glucose (74-106) mg/dL Hemoglobin A1c 5.7 (4.3-5.7) % Lactic Acid 2.1 H (0.4-2.0) mmol/L Calcium (8.5-10.1) mg/dL Magnesium 2.3 (1.8-2.4) mg/dL Creatine Kinase 105 (26-308) U/L Creatine Kinase Index 0.9 (0.0-2.5) % CK-MB (CK-2) 0.90 (0.00-3.60) ng/mL Troponin I 0.000 (0.000-0.056) ng/mL NT-Pro-B Natriuret Pep 127 H (0-125) pg/mL 08/22/17 Range/Units 17:10 WBC (4.0-10.2) K/uL RBC (4.33-5.41) M/uL Hgb (13.1-16.8) g/dL Hct (39.0-49.0) % MCV (84.0-98.0) fL MCH (28.2-33.3) pg MCHC (31.7-36.0) g/dL RDW (11.2-14.1) % Plt Count (150-350) K/uL Neut % (Auto) (45.0-80.0) % Lymph % (Auto) (10.0-50.0) % [place] % (Auto) (2.0-14.0) % Eos % (Auto) (0.0-5.0) % Baso % (Auto) (0.0-2.0) % Neut # (Auto) (1.40-7.00) K/uL Lymph # (Auto) (0.50-3.50) K/uL [place] # (Auto) (0.00-1.00) K/uL Eos # (Auto) (0.00-0.50) K/uL Baso # (Auto) (0.00-0.20) K/uL PT (9.8-11.7) SEC INR APTT (22.1-29.8) SEC D-Dimer, Quantitative (0-400) ng/mL Sodium 144 (136-145) mmol/L Potassium 3.3 L (3.5-5.1) mmol/L Chloride 104 (98-107) mmol/L Carbon Dioxide 30.4 (21.0-32.0) mmol/L BUN 25 H (7-18) mg/dL Creatinine 1.56 H (0.51-1.17) mg/dL Est Cr Clr Drug Dosing TNP Estimated GFR (MDRD) 48 mL/min Glucose 98 (74-106) mg/dL Hemoglobin A1c (4.3-5.7) % Lactic Acid (0.4-2.0) mmol/L Calcium 9.3 (8.5-10.1) mg/dL Magnesium (1.8-2.4) mg/dL Creatine Kinase (26-308) U/L Creatine Kinase Index (0.0-2.5) % CK-MB (CK-2) (0.00-3.60) ng/mL Troponin I (0.000-0.056) ng/mL NT-Pro-B Natriuret Pep (0-125) pg/mL Meds: Medications Generic Name Dose Route Start Last Admin Trade Name Freq PRN Reason Stop Dose Admin Nitroglycerin 0.5 gm 08/22/17 18:00 08/22/17 17:50 Nitro-Bid 2% TOP 0.5 gm Q6H WALTER Administration Sodium Chloride 10 ml 08/22/17 17:01 08/22/17 17:24 Saline Flush FLUSH 10 ml ASDIRECTED PRN Administration Keep Vein Open Discontinued Medications Generic Name Dose Route Start Last Admin Trade Name Freq PRN Reason Stop Dose Admin Aspirin 324 mg 08/22/17 17:01 08/22/17 17:16 Aspirin CHEW 08/22/17 17:02 324 mg ONETIME ONE Administration Famotidine 40 mg 08/22/17 17:01 08/22/17 17:16 Pepcid IVPUSH 08/22/17 17:02 40 mg ONETIME ONE Administration Metoprolol Tartrate 5 mg 08/22/17 17:01 08/22/17 17:16 Lopressor IVPUSH 08/22/17 17:02 5 mg ONETIME ONE Administration Metoprolol Tartrate 5 mg 08/22/17 17:30 08/22/17 17:35 Lopressor IVPUSH 08/22/17 17:31 5 mg ONETIME ONE Administration Nitroglycerin 0.4 mg 08/22/17 17:46 08/22/17 17:50 Nitrostat SL 08/22/17 17:47 0.4 mg ONETIME ONE Administration Ticagrelor 180 mg 08/22/17 17:30 08/22/17 17:34 Brilinta PO 08/22/17 17:31 180 mg ONETIME ONE Administration - Radiology Interpretation Free Text/Narrative:: site monitor shows normal sinus rhythm with heart rate in the 70s to 90s with no ectopy or arrhythmia Chest x-ray, portable, shows evidence of probable pulmonary obstructive disease with no cardiomegaly, CHF, pulmonary infiltrates, pneumothorax, etc. Mild prominence of the proximal aortic arch with no evidence of aneurysm. Departure - Departure Time of Disposition: 18:30 Disposition: Admitted As Inpatient 66 Condition: Good Clinical Impression: Hypertensive crisis, Renal insufficiency, Hypothyroidism (acquired), Hypokalemia, Tobacco abuse counseling, Hyperglycemia Coronary artery disease Qualifiers: Coronary Disease-Associated Artery/Lesion type: [place] artery [place] vs. transplanted heart: [place] heart Associated angina: without angina Qualified Code(s): I25.10 - Atherosclerotic heart disease of [place] coronary artery without angina pectoris Sleep apnea Qualifiers: Sleep apnea type: unspecified type Qualified Code(s): G47.30 - Sleep apnea, unspecified Osteoarthritis Qualifiers: Osteoarthritis location: multiple joints Osteoarthritis type: primary Qualified Code(s): M15.0 - Primary generalized (osteo)arthritis Hypertension Qualifiers: Hypertension type: essential hypertension Qualified Code(s): I10 - Essential ( primary) hypertension COPD (chronic obstructive pulmonary disease) Qualifiers: COPD type: emphysema Emphysema type: panlobular Qualified Code(s): J43.1 - Panlobular emphysema Referrals: Tiffani Dee PA-C [Primary Care Provider] - Forms: ED Department Discharge Care Plan Goals: See plan - Problem List & Annotations (1) Hypertension SNOMED Code(s): 38772639 Code(s): I10 - ESSENTIAL (PRIMARY) HYPERTENSION Status: Acute Priority: High Current Visit: No Annotation/Comment:: Hypertensive crisis yesterday in the emergency room secondary to medication noncompliance and noncompliance with his CPAP for at least one year as above. Patient states that he could no longer afford his medications, however he did not previously know which medications he was taking. He did contact his regular provider earlier today as above with the reinitiation of his previous medical therapy. Continue medication adjustments during this hospitalization, including recommended discharge with Imdur secondary to his cardiac ischemia as above. No evidence of neurological complications or symptoms at this time. Consider CT scan of the head depending on his clinical course with neurological checks to be conducted with his vitals. Aggressive IV treatment required in the emergency room yesterday. Medication compliance once again strongly encouraged. Close follow- up by either regular or local provider at discharge. Patient also strongly advised to decrease caffeine intake. Qualifiers: Hypertension type: essential hypertension Qualified Code(s): I10 - Essential (primary) hypertension (2) Coronary artery disease SNOMED Code(s): 18507672 Code(s): I25.10 - ATHSCL HEART DISEASE OF [place] CORONARY ARTERY W/O ANG PCTRS Status: Acute Priority: High Current Visit: No Onset Date: Annotation/Comment:: No chest pain or anginal type symptoms with chest pain protocol not initiated in the emergency room until after EKG was obtained. Note evidence of lateral wall cardiac ischemia with possible anterior wall component. Initiate standard rule out MS orders. Despite recent epistaxis ASA and Brilinta were warranted. Cardiology consultation depending on his clinical course. Patient would benefit from a Cardiolite stress test on an outpatient basis. Lipid panel in the a.m. Qualifiers: Coronary Disease-Associated Artery/Lesion type: [place] artery [place] vs. transplanted heart: [place] heart Associated angina: without angina Qualified Code(s): I25.10 - Atherosclerotic heart disease of [place] coronary artery without angina pectoris (3) COPD (chronic obstructive pulmonary disease) SNOMED Code(s): 60101247 Code(s): J44.9 - CHRONIC OBSTRUCTIVE PULMONARY DISEASE, UNSPECIFIED Status : Chronic Priority: Medium Current Visit: No Onset Date: 08/22/17 Annotation/Comment:: COPD by chest x-ray with history of sleep apnea and tobacco abuse as above. No current medical therapy or recent fever, bronchitic type symptoms, etc. Consider PFTs once his blood pressures have stabilized and his cardiac status has been determined. Note progressive leukocytosis since yesterday's ER evaluation. One dose of IV Rocephin for now with UA with culture and sensitivity to be collected. Qualifiers: COPD type: emphysema Emphysema type: panlobular Qualified Code(s): J43.1 - Panlobular emphysema (4) Epistaxis SNOMED Code(s): 922436999 Code(s): R04.0 - EPISTAXIS Status: Acute Priority: High Current Visit: No Onset Date: 08/20/17 Annotation/Comment:: Note evaluation of the patient in the emergency room yesterday evening. At that time I did perform bilateral nasal packing with 1/2 inch gauze strips with excellent results and no significant epistaxis at discharge or time of arrival to the emergency room today. Nasal packing will be kept in place secondary to ASA and Brilinta as above. Consider removal of nasal packing and/or silver nitrate cauterization tomorrow depending on his clinical course. Hypertension is a contributing factor to patient's epistaxis. Secondary to poor visibility silver nitrate cauterization could not be performed yesterday. ENT consultation depending on his clinical course. (5) Hyperglycemia SNOMED Code(s): 12901171 Code(s): R73.9 - HYPERGLYCEMIA, UNSPECIFIED Status: Acute Priority: Medium Current Visit: No Onset Date: ~08/21/17 Annotation/Comment:: No known previous history of diabetes. Glycosylated hemoglobin normal today with mild nonfasting hyperglycemia yesterday in the emergency room. (6) Hypertensive crisis SNOMED Code(s): 342332170 Code(s): I16.9 - HYPERTENSIVE CRISIS, UNSPECIFIED Status: Acute Priority : High Current Visit: No Onset Date: 08/21/17 Annotation/Comment:: As above (7) Hypothyroidism (acquired) SNOMED Code(s): 107860866 Code(s): E03.9 - HYPOTHYROIDISM, UNSPECIFIED Status: Acute Priority: Medium Current Visit: No Onset Date: 08/21/17 Annotation/Comment:: Close follow-up by regular provider. Synthroid not to be initiated at this time with repeat TSH recommended in about 4 weeks. Note TSH of 3.772 yesterday in the emergency room (8) Sleep apnea SNOMED Code(s): 36517572 Code(s): G47.30 - SLEEP APNEA, UNSPECIFIED Status: Acute Current Visit: No Annotation/Comment:: As above. Attempt to contact his respiratory therapist prior to discharge for a new CPAP mask to improve compliance and blood pressure control Qualifiers: Sleep apnea type: unspecified type Qualified Code(s): G47.30 - Sleep apnea , unspecified (9) Hypokalemia SNOMED Code(s): 23737251 Code(s): E87.6 - HYPOKALEMIA Status: Chronic Priority: Medium Current Visit: No Annotation/Comment:: Persistent hypokalemia despite reinitiation of his potassium yesterday evening. Dose adjustment of his calcium chloride with caution secondary to his history of renal insufficiency (10) Osteoarthritis SNOMED Code(s): 298637511 Code(s): M19.90 - UNSPECIFIED OSTEOARTHRITIS, UNSPECIFIED SITE Status: Chronic Priority: Medium Current Visit: No Annotation/Comment:: Stable by patient history, including chronic neck pain from previous Workmen's Compensation injury, although some neck spasms in the emergency room today. Qualifiers: Osteoarthritis location: multiple joints Osteoarthritis type: primary Qualified Code(s): M15.0 - Primary generalized (osteo)arthritis (11) Renal insufficiency SNOMED Code(s): 651465534, 334439469 Code(s): N28.9 - DISORDER OF KIDNEY AND URETER, UNSPECIFIED Status: Chronic Priority: Medium Current Visit: No Annotation/Comment:: Stable by history and serial blood renal function evaluations since yesterday. He was previously instructed to avoid all NSAID use. Note mild BNP elevation likely secondary to his renal insufficiency with no clinical evidence of significant CHF. (12) Tobacco abuse counseling SNOMED Code(s): 149645548, 641288575, 150017185 Code(s): Z71.6 - TOBACCO ABUSE COUNSELING Status: Chronic Priority: Medium Current Visit: No Annotation/Comment:: Tobacco cessation strongly encouraged information provided yesterday in the emergency room. Patient congratulated about stopping chewing tobacco use. - Problem List Review Problem List Initiated/Reviewed/Updated: Yes - My Orders Last 24 Hours: My Active Orders 08/22/17 17:01 Cardiac Monitoring [RC] . DIRECTED EKG Documentation Completion [RC] ASDIRECTED Peripheral IV Care [RC] . DIRECTED Pulse Oximetry [RC] CONTINUOUS Up With Assistance [RC] PFP Vital Signs [RC] PFP Chest 1V Frontal [CR] Stat Sodium Chloride 0.9% [Saline Flush] 10 ml FLUSH ASDIRECTED PRN Obtain Past Medical Record [OM.PC] Urgent Peripheral IV Insertion Adult [OM.PC] Stat Resuscitation Status Stat 08/22/17 18:00 Nitroglycerin [Nitro-Bid 2%] 0.5 gm TOP Q6H 08/22/17 Breakfast Nothing per Oral Now Diet [DIET] - Assessment/Plan Last 24 Hours: My Active Orders 08/22/17 17:01 Cardiac Monitoring [RC] . DIRECTED EKG Documentation Completion [RC] ASDIRECTED Peripheral IV Care [RC] . DIRECTED Pulse Oximetry [RC] CONTINUOUS Up With Assistance [RC] PFP Vital Signs [RC] PFP Chest 1V Frontal [CR] Stat Sodium Chloride 0.9% [Saline Flush] 10 ml FLUSH ASDIRECTED PRN Obtain Past Medical Record [OM.PC] Urgent Peripheral IV Insertion Adult [OM.PC] Stat Resuscitation Status Stat 08/22/17 18:00 Nitroglycerin [Nitro-Bid 2%] 0.5 gm TOP Q6H 08/22/17 Breakfast Nothing per Oral Now Diet [DIET] Assessment:: As above Plan: As above. Extensive precautions were given to the patient and his sister, who are in agreement with the treatment plan. The patient will require about 3-4 days of inpatient/acute care secondary to multiple health problems as above.
[2017-08-22] MEDS ORDERED: Ticagrelor 90 MG Tab PO ONE (17:30)
[2017-08-22 17:35] LABS: CHLORIDE,CL 104 mmol/L (98-107); SODIUM,NA 144 mmol/L (136-145)
[2017-08-22] MEDS ORDERED: Nitroglycerin 0.4 MG Tab.SL SL ONE (17:46)
[2017-08-22] MEDS ORDERED: Nitroglycerin 2% Oint 1 GM UD Packet TOP SCH (18:00)
[2017-08-22] MEDS ORDERED: Temazepam 15 MG Cap PO PRN (19:17)
[2017-08-22] MEDS ORDERED: Acetaminophen 325 MG Tab PO PRN (19:17)
[2017-08-22] MEDS ORDERED: Metoprolol Tartrate 50 MG Tab PO ONE (19:21)
[2017-08-22] MEDS ORDERED: cefTRIAXone 1 GM in Sodium Chloride 0.9% 100 ML IV ONE (19:24)
[2017-08-22] MEDS: hydrALAZINE 50 MG Tab PO SCH (20:06)
[2017-08-22] MEDS: Potassium Chloride 20 MEQ Tab.ER PO SCH (20:11)
[2017-08-22] MEDS ORDERED: Sodium Chloride 0.9% 1,000 ML IV SCH (22:45)
[2017-08-22] MEDS ORDERED: Nitroglycerin/D5W 25 MG/250 ML BOTTLE IV SCH (22:45)
[2017-08-22] MEDS ORDERED: Simvastatin 10 MG Tab PO SCH (22:49)
[2017-08-23] MEDS: Nitroglycerin 2% Oint 1 GM UD Packet TOP SCH ×2 (01:51→07:40)
[2017-08-23] MEDS: hydrALAZINE 50 MG Tab PO SCH (07:39)
[2017-08-23] MEDS: Potassium Chloride 20 MEQ Tab.ER PO SCH ×2 (07:40→13:11)
[2017-08-23] MEDS ORDERED: Potassium Chloride 20 MEQ Tab.ER PO SCH ×2 (08:00)
[2017-08-23] MEDS ORDERED: Lisinopril 10 MG Tab PO SCH (08:00)
[2017-08-23] MEDS ORDERED: Labetalol 100 MG Tab PO PRN ×2 (09:49→12:42)
--- NOTE | 2017-08-23 10:11 | PCM.PN ---
- General Info Date of Service: 08/23/17 Functional Status: Reports: Other (Hypertension controlled) - Review of Systems General: Reports: No Symptoms HEENT: Reports: Other (History of nasal bleeding) Pulmonary: Reports: No Symptoms Cardiovascular: Reports: No Symptoms Gastrointestinal: Reports: No Symptoms Genitourinary: Reports: No Symptoms Musculoskeletal: Reports: No Symptoms Skin: Reports: No Symptoms Neurological: Reports: No Symptoms Psychiatric: Reports: No Symptoms - Patient Data Vitals - Most Recent: Last Vital Signs Temp 98 F 08/23/17 07:38 Pulse 78 08/23/17 07:38 Resp 18 08/23/17 07:38 BP 151/107 H 08/23/17 07:39 Pulse Ox 95 08/23/17 07:38 Weight - Most Recent: 216 lb 4.8 oz I&O - Last 24 Hours: Intake & Output 08/22/17 08/23/17 08/23/17 22:59 06:59 14:59 Intake Total 220 700 Output Total 1300 Balance 220 -600 Lab Results Last 24 Hours: Laboratory Results - last 24 hr 08/22/17 08/22/17 08/22/17 Range/Units 17:10 17:10 17:10 WBC 13.0 H (4.0-10.2) K/uL RBC 5.76 H (4.33-5.41) M/uL Hgb 17.0 H (13.1-16.8) g/dL Hct 49.0 (39.0-49.0) % MCV 85.1 (84.0-98.0) fL MCH 29.5 (28.2-33.3) pg MCHC 34.7 (31.7-36.0) g/dL RDW 14.9 H (11.2-14.1) % Plt Count 167 (150-350) K/uL Neut % (Auto) 69.7 (45.0-80.0) % Lymph % (Auto) 21.7 (10.0-50.0) % [place] % (Auto) 7.9 (2.0-14.0) % Eos % (Auto) 0.5 (0.0-5.0) % Baso % (Auto) 0.2 (0.0-2.0) % Neut # (Auto) 9.08 H (1.40-7.00) K/uL Lymph # (Auto) 2.82 (0.50-3.50) K/uL [place] # (Auto) 1.03 H (0.00-1.00) K/uL Eos # (Auto) 0.06 (0.00-0.50) K/uL Baso # (Auto) 0.03 (0.00-0.20) K/uL PT 10.2 (9.8-11.7) SEC INR 1.0 APTT 23.8 (22.1-29.8) SEC D-Dimer, Quantitative < 100 (0-400) ng/mL Sodium (136-145) mmol/L Potassium (3.5-5.1) mmol/L Chloride (98-107) mmol/L Carbon Dioxide (21.0-32.0) mmol/L BUN (7-18) mg/dL Creatinine (0.51-1.17) mg/dL Est Cr Clr Drug Dosing Estimated GFR (MDRD) mL/min Glucose (74-106) mg/dL Hemoglobin A1c (4.3-5.7) % Lactic Acid (0.4-2.0) mmol/L Calcium (8.5-10.1) mg/dL Magnesium (1.8-2.4) mg/dL Total Bilirubin (0.2-1.0) mg/dL AST (15-37) U/L ALT (12-78) U/L Alkaline Phosphatase (46-116) IU/L Creatine Kinase (26-308) U/L Creatine Kinase Index (0.0-2.5) % CK-MB (CK-2) (0.00-3.60) ng/mL Troponin I (0.000-0.056) ng/mL NT-Pro-B Natriuret Pep (0-125) pg/mL Total Protein (6.4-8.2) g/dL Albumin (3.4-5.0) g/dL Triglycerides (30-150) mg/dL Cholesterol (100-200) mg/dL LDL Cholesterol, Calc (0-100) mg/dL HDL Cholesterol (40-60) mg/dL Specimen Type Urine Color Urine Appearance Urine pH (5.0-9.0) Ur Specific [place] (1.005-1.030) Urine Protein (NEGATIVE) mg/dL Urine Glucose (UA) (NEGATIVE) mg/dL Urine Ketones (NEGATIVE) mg/dL Urine Occult Blood (NEGATIVE) Urine Nitrite (NEGATIVE) Urine Bilirubin (NEGATIVE) Urine Urobilinogen (0.2-1.0) E.U./dL Ur Leukocyte Esterase (NEGATIVE) Urine RBC /HPF Urine WBC /HPF Ur Epithelial Cells /LPF Urine Bacteria (NONE TO FEW) /HPF 08/22/17 08/22/17 08/22/17 Range/Units 17:10 17:10 17:10 WBC (4.0-10.2) K/uL RBC (4.33-5.41) M/uL Hgb (13.1-16.8) g/dL Hct (39.0-49.0) % MCV (84.0-98.0) fL MCH (28.2-33.3) pg MCHC (31.7-36.0) g/dL RDW (11.2-14.1) % Plt Count (150-350) K/uL Neut % (Auto) (45.0-80.0) % Lymph % (Auto) (10.0-50.0) % [place] % (Auto) (2.0-14.0) % Eos % (Auto) (0.0-5.0) % Baso % (Auto) (0.0-2.0) % Neut # (Auto) (1.40-7.00) K/uL Lymph # (Auto) (0.50-3.50) K/uL [place] # (Auto) (0.00-1.00) K/uL Eos # (Auto) (0.00-0.50) K/uL Baso # (Auto) (0.00-0.20) K/uL PT (9.8-11.7) SEC INR APTT (22.1-29.8) SEC D-Dimer, Quantitative (0-400) ng/mL Sodium (136-145) mmol/L Potassium (3.5-5.1) mmol/L Chloride (98-107) mmol/L Carbon Dioxide (21.0-32.0) mmol/L BUN (7-18) mg/dL Creatinine (0.51-1.17) mg/dL Est Cr Clr Drug Dosing Estimated GFR (MDRD) mL/min Glucose (74-106) mg/dL Hemoglobin A1c 5.7 (4.3-5.7) % Lactic Acid 2.1 H (0.4-2.0) mmol/L Calcium (8.5-10.1) mg/dL Magnesium 2.3 (1.8-2.4) mg/dL Total Bilirubin (0.2-1.0) mg/dL AST (15-37) U/L ALT (12-78) U/L Alkaline Phosphatase (46-116) IU/L Creatine Kinase 105 (26-308) U/L Creatine Kinase Index 0.9 (0.0-2.5) % CK-MB (CK-2) 0.90 (0.00-3.60) ng/mL Troponin I 0.000 (0.000-0.056) ng/mL NT-Pro-B Natriuret Pep 127 H (0-125) pg/mL Total Protein (6.4-8.2) g/dL Albumin (3.4-5.0) g/dL Triglycerides (30-150) mg/dL Cholesterol (100-200) mg/dL LDL Cholesterol, Calc (0-100) mg/dL HDL Cholesterol (40-60) mg/dL Specimen Type Urine Color Urine Appearance Urine pH (5.0-9.0) Ur Specific [place] (1.005-1.030) Urine Protein (NEGATIVE) mg/dL Urine Glucose (UA) (NEGATIVE) mg/dL Urine Ketones (NEGATIVE) mg/dL Urine Occult Blood (NEGATIVE) Urine Nitrite (NEGATIVE) Urine Bilirubin (NEGATIVE) Urine Urobilinogen (0.2-1.0) E.U./dL Ur Leukocyte Esterase (NEGATIVE) Urine RBC /HPF Urine WBC /HPF Ur Epithelial Cells /LPF Urine Bacteria (NONE TO FEW) /HPF 08/22/17 08/22/17 08/22/17 Range/Units 17:10 21:47 22:10 WBC (4.0-10.2) K/uL RBC (4.33-5.41) M/uL Hgb (13.1-16.8) g/dL Hct (39.0-49.0) % MCV (84.0-98.0) fL MCH (28.2-33.3) pg MCHC (31.7-36.0) g/dL RDW (11.2-14.1) % Plt Count (150-350) K/uL Neut % (Auto) (45.0-80.0) % Lymph % (Auto) (10.0-50.0) % [place] % (Auto) (2.0-14.0) % Eos % (Auto) (0.0-5.0) % Baso % (Auto) (0.0-2.0) % Neut # (Auto) (1.40-7.00) K/uL Lymph # (Auto) (0.50-3.50) K/uL [place] # (Auto) (0.00-1.00) K/uL Eos # (Auto) (0.00-0.50) K/uL Baso # (Auto) (0.00-0.20) K/uL PT (9.8-11.7) SEC INR APTT (22.1-29.8) SEC D-Dimer, Quantitative (0-400) ng/mL Sodium 144 (136-145) mmol/L Potassium 3.3 L (3.5-5.1) mmol/L Chloride 104 (98-107) mmol/L Carbon Dioxide 30.4 (21.0-32.0) mmol/L BUN 25 H (7-18) mg/dL Creatinine 1.56 H (0.51-1.17) mg/dL Est Cr Clr Drug Dosing TNP Estimated GFR (MDRD) 48 mL/min Glucose 98 (74-106) mg/dL Hemoglobin A1c (4.3-5.7) % Lactic Acid (0.4-2.0) mmol/L Calcium 9.3 (8.5-10.1) mg/dL Magnesium (1.8-2.4) mg/dL Total Bilirubin (0.2-1.0) mg/dL AST (15-37) U/L ALT (12-78) U/L Alkaline Phosphatase (46-116) IU/L Creatine Kinase 93 (26-308) U/L Creatine Kinase Index 0.9 (0.0-2.5) % CK-MB (CK-2) 0.80 (0.00-3.60) ng/mL Troponin I 0.000 (0.000-0.056) ng/mL NT-Pro-B Natriuret Pep (0-125) pg/mL Total Protein (6.4-8.2) g/dL Albumin (3.4-5.0) g/dL Triglycerides 243 H (30-150) mg/dL Cholesterol 188 (100-200) mg/dL LDL Cholesterol, Calc 110 H (0-100) mg/dL HDL Cholesterol 29 L (40-60) mg/dL Specimen Type Urincc Urine Color Yellow Urine Appearance Clear Urine pH 7.5 (5.0-9.0) Ur Specific [place] 1.015 (1.005-1.030) Urine Protein 100 H (NEGATIVE) mg/dL Urine Glucose (UA) Negative (NEGATIVE) mg/dL Urine Ketones Negative (NEGATIVE) mg/dL Urine Occult Blood Trace-lysed H (NEGATIVE) Urine Nitrite Negative (NEGATIVE) Urine Bilirubin Negative (NEGATIVE) Urine Urobilinogen 1.0 (0.2-1.0) E.U./dL Ur Leukocyte Esterase Negative (NEGATIVE) Urine RBC 0-5 /HPF Urine WBC 0-5 /HPF Ur Epithelial Cells Occasional /LPF Urine Bacteria Occasional (NONE TO FEW) /HPF 08/23/17 08/23/17 Range/Units 06:28 06:28 WBC 10.4 H (4.0-10.2) K/uL RBC 5.06 (4.33-5.41) M/uL Hgb 14.8 D (13.1-16.8) g/dL Hct 43.6 (39.0-49.0) % MCV 86.2 (84.0-98.0) fL MCH 29.2 (28.2-33.3) pg MCHC 33.9 (31.7-36.0) g/dL RDW 14.7 H (11.2-14.1) % Plt Count 163 (150-350) K/uL Neut % (Auto) 60.8 (45.0-80.0) % Lymph % (Auto) 27.5 (10.0-50.0) % [place] % (Auto) 10.0 (2.0-14.0) % Eos % (Auto) 1.3 (0.0-5.0) % Baso % (Auto) 0.4 (0.0-2.0) % Neut # (Auto) 6.33 (1.40-7.00) K/uL Lymph # (Auto) 2.86 (0.50-3.50) K/uL [place] # (Auto) 1.04 H (0.00-1.00) K/uL Eos # (Auto) 0.13 (0.00-0.50) K/uL Baso # (Auto) 0.04 (0.00-0.20) K/uL PT (9.8-11.7) SEC INR APTT (22.1-29.8) SEC D-Dimer, Quantitative (0-400) ng/mL Sodium 144 (136-145) mmol/L Potassium 3.2 L (3.5-5.1) mmol/L Chloride 108 H (98-107) mmol/L Carbon Dioxide 29.3 (21.0-32.0) mmol/L BUN 25 H (7-18) mg/dL Creatinine 1.71 H (0.51-1.17) mg/dL Est Cr Clr Drug Dosing 52.22 Estimated GFR (MDRD) 43 mL/min Glucose 108 H (74-106) mg/dL Hemoglobin A1c (4.3-5.7) % Lactic Acid (0.4-2.0) mmol/L Calcium 8.6 (8.5-10.1) mg/dL Magnesium (1.8-2.4) mg/dL Total Bilirubin 0.5 (0.2-1.0) mg/dL AST 17 (15-37) U/L ALT 23 (12-78) U/L Alkaline Phosphatase 95 (46-116) IU/L Creatine Kinase 93 (26-308) U/L Creatine Kinase Index 0.8 (0.0-2.5) % CK-MB (CK-2) 0.70 (0.00-3.60) ng/mL Troponin I 0.000 (0.000-0.056) ng/mL NT-Pro-B Natriuret Pep 104 (0-125) pg/mL Total Protein 6.5 (6.4-8.2) g/dL Albumin 3.1 L (3.4-5.0) g/dL Triglycerides (30-150) mg/dL Cholesterol (100-200) mg/dL LDL Cholesterol, Calc (0-100) mg/dL HDL Cholesterol (40-60) mg/dL Specimen Type Urine Color Urine Appearance Urine pH (5.0-9.0) Ur Specific [place] (1.005-1.030) Urine Protein (NEGATIVE) mg/dL Urine Glucose (UA) (NEGATIVE) mg/dL Urine Ketones (NEGATIVE) mg/dL Urine Occult Blood (NEGATIVE) Urine Nitrite (NEGATIVE) Urine Bilirubin (NEGATIVE) Urine Urobilinogen (0.2-1.0) E.U./dL Ur Leukocyte Esterase (NEGATIVE) Urine RBC /HPF Urine WBC /HPF Ur Epithelial Cells /LPF Urine Bacteria (NONE TO FEW) /HPF [place] Results Last 24 Hours: Microbiology 08/22/17 22:10 Urine Culture - Preliminary Urine, Clean Catch NO GROWTH AFTER 1 DAY Med Orders - Current: Current Medications Acetaminophen (Tylenol) 650 mg PO Q4H PRN PRN Reason: Pain Last Admin: 08/23/17 07:52 Dose: 650 mg Hydralazine HCl (Apresoline) 50 mg PO Q12HR [facility] Last Admin: 08/23/17 07:39 Dose: 50 mg Sodium Chloride (Normal Saline) 1,000 mls @ 30 mls/hr IV ASDIRECTED [facility] Last Admin: 08/22/17 23:10 Dose: 30 mls/hr Labetalol HCl (Normodyne) 200 mg PO ONETIME PRN PRN Reason: blood pressure control Potassium Chloride (Klor-Con M20) 20 meq PO TID [facility] Last Admin: 08/23/17 07:40 Dose: 20 meq Simvastatin (Zocor) 10 mg PO BEDTIME [facility] Last Admin: 08/22/17 23:19 Dose: 10 mg Sodium Chloride (Saline Flush) 10 ml FLUSH ASDIRECTED PRN PRN Reason: Keep Vein Open Last Admin: 08/22/17 17:24 Dose: 10 ml Sodium Chloride (Saline Flush) 10 ml FLUSH Q12HR PRN PRN Reason: Keep Vein Open Temazepam (Restoril) 15 mg PO BEDTIME PRN PRN Reason: Insomnia Discontinued Medications Aspirin (Aspirin) 324 mg CHEW ONETIME ONE Stop: 08/22/17 17:02 Last Admin: 08/22/17 17:16 Dose: 324 mg Famotidine (Pepcid) 40 mg IVPUSH ONETIME ONE Stop: 08/22/17 17:02 Last Admin: 05/18/18 17:16 Dose: 40 mg Ceftriaxone Sodium 1 gm/ (Sodium Chloride) 100 mls @ 200 mls/hr IV ONETIME ONE Stop: 08/22/17 19:53 Last Admin: 08/22/17 20:18 Dose: Not Given Nitroglycerin/Dextrose (Nitroglycerin 25 Mg/D5w 250 Ml) 25 mg in 250 mls @ 6 mls/hr IV TITRATE [facility] Last Infusion: 08/23/17 05:35 Dose: 20 mcg/min, 12 mls/hr Lisinopril (Prinivil) 10 mg PO DAILY [facility] Last Admin: 08/23/17 07:39 Dose: 10 mg Metoprolol Tartrate (Lopressor) 5 mg IVPUSH ONETIME ONE Stop: 08/22/17 17:02 Last Admin: 08/22/17 17:16 Dose: 5 mg Metoprolol Tartrate (Lopressor) 5 mg IVPUSH ONETIME ONE Stop: 08/22/17 17:31 Last Admin: 08/22/17 17:35 Dose: 5 mg Metoprolol Tartrate (Lopressor) 50 mg PO Q12HR ONE Stop: 08/22/17 19:22 Last Admin: 08/22/17 20:10 Dose: 50 mg Nitroglycerin (Nitrostat) 0.4 mg SL ONETIME ONE Stop: 08/22/17 17:47 Last Admin: 08/22/17 17:50 Dose: 0.4 mg Nitroglycerin (Nitro-Bid 2%) 0.5 gm TOP Q6H [facility] Last Admin: 08/22/17 17:50 Dose: 0.5 gm Nitroglycerin (Nitro-Bid 2%) 0.5 gm TOP Q6H [facility] Last Admin: 08/23/17 07:40 Dose: 0.5 gm Potassium Chloride (Klor-Con M20) 20 meq PO TID [facility] Potassium Chloride (Klor-Con M20) 20 meq PO TID [facility] Ticagrelor (Brilinta) 180 mg PO ONETIME ONE Stop: 08/22/17 17:31 Last Admin: 08/22/17 17:34 Dose: 180 mg - Exam General: Alert, Oriented HEENT: Pupils Equal, Pupils Reactive, EOMI, Mucous Membr. Moist/[place] Neck: Supple Lungs: Clear to Auscultation, Normal Respiratory Effort Cardiovascular: Regular Rate, Regular Rhythm GI/Abdominal Exam: Normal Bowel Sounds, Soft, Non-Tender, No Organomegaly, No Distention, No Abnormal Bruit, No Mass, Pelvis Stable (Male) Exam: Deferred Back Exam: Normal Inspection, Full Range of Motion Extremities: Normal Inspection, Normal Range of Motion, Non-Tender, No Pedal Edema, Normal Capillary Refill Skin: Warm, Dry, Intact Neurological: No New Focal Deficit Psy/Mental Status: Alert, Normal Affect, Normal Mood - Problem List & Annotations (1) Hypertension SNOMED Code(s): 44519308 Code(s): I10 - ESSENTIAL (PRIMARY) HYPERTENSION Status: Acute Priority: High Qualifiers: Hypertension type: essential hypertension Qualified Code(s): I10 - Essential (primary) hypertension Annotation/Comment:: At this time patient continues hypertensive I will discontinue the Nitrolglycerin I will also discontinue the lisinopril since there is renal damage secondary to hypertension start him on a fast acting beta janelle to control his blood pressure and hopefully we can send him home later today - Problem List Review Problem List Initiated/Reviewed/Updated: Yes - My Orders Last 24 Hours: My Active Orders 08/23/17 09:49 Labetalol [Normodyne] 200 mg PO ONETIME PRN - Plan Plan:: see above
--- NOTE | 2017-08-23 16:43 | PCM.DCSUM1 ---
Discharge Summary - Discharge Data Discharge Date: 08/23/17 Discharge Disposition: Home, Self-Care 01 Condition: Good - Discharge Diagnosis/Problem(s) (1) Hypertension SNOMED Code(s): 34992700 ICD Code: I10 - ESSENTIAL (PRIMARY) HYPERTENSION Status: Acute Priority: High Current Visit: No Problem Details: At this time patient continues hypertensive I will discontinue the Nitrolglycerin I will also discontinue the lisinopril since there is renal damage secondary to hypertension start him on a fast acting beta janelle to control his blood pressure and hopefully we can send him home later today Qualifiers: Hypertension type: essential hypertension Qualified Code(s): I10 - Essential (primary) hypertension - Patient Instructions Diet: Heart Healthy Diet Activity: As Tolerated Driving: Do Not Drive Showering/Bathing: May Shower - Discharge Plan Home Medications: Home Meds Aspirin 81 mg PO DAILY 08/22/17 [History] Lisinopril 10 mg PO DAILY 08/22/17 [History] Metoprolol Succinate 25 mg PO DAILY 08/22/17 [History] Potassium Chloride [Klor-Con M20] 20 meq PO TID 08/22/17 [History] amLODIPine Besylate [Norvasc] 10 mg PO DAILY 08/22/17 [History] Patient Handouts: Hydralazine tablets, Coronary Artery Disease, Male, Preventing High Cholesterol, Hypertension, [id number], Simvastatin tablets, Nitroglycerin skin patches Forms: ED Department Discharge Referrals: Tiffani Dee PA-C [Primary Care Provider] - - General Info Date of Service: 08/23/17 Functional Status: Reports: Ambulating - Review of Systems General: Reports: No Symptoms HEENT: Reports: No Symptoms Pulmonary: Reports: No Symptoms Cardiovascular: Reports: No Symptoms, Other (Hypertension) Gastrointestinal: Reports: No Symptoms Genitourinary: Reports: No Symptoms Musculoskeletal: Reports: No Symptoms Skin: Reports: No Symptoms Neurological: Reports: No Symptoms - Patient Data Vitals - Most Recent: Last Vital Signs Temp 97.8 F 08/23/17 14:00 Pulse 89 08/23/17 14:00 Resp 16 08/23/17 14:00 BP 145/84 H 08/23/17 14:00 Pulse Ox 97 08/23/17 14:00 Weight - Most Recent: 216 lb I&O - Last 24 hours: Intake & Output 08/23/17 08/23/17 08/23/17 06:59 14:59 22:59 Intake Total 700 1578 Output Total 1300 650 Balance -600 928 Lab Results - Last 24 hrs: Laboratory Results - last 24 hr 08/22/17 08/22/17 08/22/17 Range/Units 17:10 17:10 17:10 WBC 13.0 H (4.0-10.2) K/uL RBC 5.76 H (4.33-5.41) M/uL Hgb 17.0 H (13.1-16.8) g/dL Hct 49.0 (39.0-49.0) % MCV 85.1 (84.0-98.0) fL MCH 29.5 (28.2-33.3) pg MCHC 34.7 (31.7-36.0) g/dL RDW 14.9 H (11.2-14.1) % Plt Count 167 (150-350) K/uL Neut % (Auto) 69.7 (45.0-80.0) % Lymph % (Auto) 21.7 (10.0-50.0) % [place] % (Auto) 7.9 (2.0-14.0) % Eos % (Auto) 0.5 (0.0-5.0) % Baso % (Auto) 0.2 (0.0-2.0) % Neut # (Auto) 9.08 H (1.40-7.00) K/uL Lymph # (Auto) 2.82 (0.50-3.50) K/uL [place] # (Auto) 1.03 H (0.00-1.00) K/uL Eos # (Auto) 0.06 (0.00-0.50) K/uL Baso # (Auto) 0.03 (0.00-0.20) K/uL PT 10.2 (9.8-11.7) SEC INR 1.0 APTT 23.8 (22.1-29.8) SEC D-Dimer, Quantitative < 100 (0-400) ng/mL Sodium (136-145) mmol/L Potassium (3.5-5.1) mmol/L Chloride (98-107) mmol/L Carbon Dioxide (21.0-32.0) mmol/L BUN (7-18) mg/dL Creatinine (0.51-1.17) mg/dL Est Cr Clr Drug Dosing Estimated GFR (MDRD) mL/min Glucose (74-106) mg/dL Hemoglobin A1c (4.3-5.7) % Lactic Acid (0.4-2.0) mmol/L Calcium (8.5-10.1) mg/dL Magnesium (1.8-2.4) mg/dL Total Bilirubin (0.2-1.0) mg/dL AST (15-37) U/L ALT (12-78) U/L Alkaline Phosphatase (46-116) IU/L Creatine Kinase (26-308) U/L Creatine Kinase Index (0.0-2.5) % CK-MB (CK-2) (0.00-3.60) ng/mL Troponin I (0.000-0.056) ng/mL NT-Pro-B Natriuret Pep (0-125) pg/mL Total Protein (6.4-8.2) g/dL Albumin (3.4-5.0) g/dL Triglycerides (30-150) mg/dL Cholesterol (100-200) mg/dL LDL Cholesterol, Calc (0-100) mg/dL HDL Cholesterol (40-60) mg/dL Specimen Type Urine Color Urine Appearance Urine pH (5.0-9.0) Ur Specific [place] (1.005-1.030) Urine Protein (NEGATIVE) mg/dL Urine Glucose (UA) (NEGATIVE) mg/dL Urine Ketones (NEGATIVE) mg/dL Urine Occult Blood (NEGATIVE) Urine Nitrite (NEGATIVE) Urine Bilirubin (NEGATIVE) Urine Urobilinogen (0.2-1.0) E.U./dL Ur Leukocyte Esterase (NEGATIVE) Urine RBC /HPF Urine WBC /HPF Ur Epithelial Cells /LPF Urine Bacteria (NONE TO FEW) /HPF 08/22/17 08/22/17 08/22/17 Range/Units 17:10 17:10 17:10 WBC (4.0-10.2) K/uL RBC (4.33-5.41) M/uL Hgb (13.1-16.8) g/dL Hct (39.0-49.0) % MCV (84.0-98.0) fL MCH (28.2-33.3) pg MCHC (31.7-36.0) g/dL RDW (11.2-14.1) % Plt Count (150-350) K/uL Neut % (Auto) (45.0-80.0) % Lymph % (Auto) (10.0-50.0) % [place] % (Auto) (2.0-14.0) % Eos % (Auto) (0.0-5.0) % Baso % (Auto) (0.0-2.0) % Neut # (Auto) (1.40-7.00) K/uL Lymph # (Auto) (0.50-3.50) K/uL [place] # (Auto) (0.00-1.00) K/uL Eos # (Auto) (0.00-0.50) K/uL Baso # (Auto) (0.00-0.20) K/uL PT (9.8-11.7) SEC INR APTT (22.1-29.8) SEC D-Dimer, Quantitative (0-400) ng/mL Sodium (136-145) mmol/L Potassium (3.5-5.1) mmol/L Chloride (98-107) mmol/L Carbon Dioxide (21.0-32.0) mmol/L BUN (7-18) mg/dL Creatinine (0.51-1.17) mg/dL Est Cr Clr Drug Dosing Estimated GFR (MDRD) mL/min Glucose (74-106) mg/dL Hemoglobin A1c 5.7 (4.3-5.7) % Lactic Acid 2.1 H (0.4-2.0) mmol/L Calcium (8.5-10.1) mg/dL Magnesium 2.3 (1.8-2.4) mg/dL Total Bilirubin (0.2-1.0) mg/dL AST (15-37) U/L ALT (12-78) U/L Alkaline Phosphatase (46-116) IU/L Creatine Kinase 105 (26-308) U/L Creatine Kinase Index 0.9 (0.0-2.5) % CK-MB (CK-2) 0.90 (0.00-3.60) ng/mL Troponin I 0.000 (0.000-0.056) ng/mL NT-Pro-B Natriuret Pep 127 H (0-125) pg/mL Total Protein (6.4-8.2) g/dL Albumin (3.4-5.0) g/dL Triglycerides (30-150) mg/dL Cholesterol (100-200) mg/dL LDL Cholesterol, Calc (0-100) mg/dL HDL Cholesterol (40-60) mg/dL Specimen Type Urine Color Urine Appearance Urine pH (5.0-9.0) Ur Specific [place] (1.005-1.030) Urine Protein (NEGATIVE) mg/dL Urine Glucose (UA) (NEGATIVE) mg/dL Urine Ketones (NEGATIVE) mg/dL Urine Occult Blood (NEGATIVE) Urine Nitrite (NEGATIVE) Urine Bilirubin (NEGATIVE) Urine Urobilinogen (0.2-1.0) E.U./dL Ur Leukocyte Esterase (NEGATIVE) Urine RBC /HPF Urine WBC /HPF Ur Epithelial Cells /LPF Urine Bacteria (NONE TO FEW) /HPF 08/22/17 08/22/17 08/22/17 Range/Units 17:10 21:47 22:10 WBC (4.0-10.2) K/uL RBC (4.33-5.41) M/uL Hgb (13.1-16.8) g/dL Hct (39.0-49.0) % MCV (84.0-98.0) fL MCH (28.2-33.3) pg MCHC (31.7-36.0) g/dL RDW (11.2-14.1) % Plt Count (150-350) K/uL Neut % (Auto) (45.0-80.0) % Lymph % (Auto) (10.0-50.0) % [place] % (Auto) (2.0-14.0) % Eos % (Auto) (0.0-5.0) % Baso % (Auto) (0.0-2.0) % Neut # (Auto) (1.40-7.00) K/uL Lymph # (Auto) (0.50-3.50) K/uL [place] # (Auto) (0.00-1.00) K/uL Eos # (Auto) (0.00-0.50) K/uL Baso # (Auto) (0.00-0.20) K/uL PT (9.8-11.7) SEC INR APTT (22.1-29.8) SEC D-Dimer, Quantitative (0-400) ng/mL Sodium 144 (136-145) mmol/L Potassium 3.3 L (3.5-5.1) mmol/L Chloride 104 (98-107) mmol/L Carbon Dioxide 30.4 (21.0-32.0) mmol/L BUN 25 H (7-18) mg/dL Creatinine 1.56 H (0.51-1.17) mg/dL Est Cr Clr Drug Dosing TNP Estimated GFR (MDRD) 48 mL/min Glucose 98 (74-106) mg/dL Hemoglobin A1c (4.3-5.7) % Lactic Acid (0.4-2.0) mmol/L Calcium 9.3 (8.5-10.1) mg/dL Magnesium (1.8-2.4) mg/dL Total Bilirubin (0.2-1.0) mg/dL AST (15-37) U/L ALT (12-78) U/L Alkaline Phosphatase (46-116) IU/L Creatine Kinase 93 (26-308) U/L Creatine Kinase Index 0.9 (0.0-2.5) % CK-MB (CK-2) 0.80 (0.00-3.60) ng/mL Troponin I 0.000 (0.000-0.056) ng/mL NT-Pro-B Natriuret Pep (0-125) pg/mL Total Protein (6.4-8.2) g/dL Albumin (3.4-5.0) g/dL Triglycerides 243 H (30-150) mg/dL Cholesterol 188 (100-200) mg/dL LDL Cholesterol, Calc 110 H (0-100) mg/dL HDL Cholesterol 29 L (40-60) mg/dL Specimen Type Urincc Urine Color Yellow Urine Appearance Clear Urine pH 7.5 (5.0-9.0) Ur Specific [place] 1.015 (1.005-1.030) Urine Protein 100 H (NEGATIVE) mg/dL Urine Glucose (UA) Negative (NEGATIVE) mg/dL Urine Ketones Negative (NEGATIVE) mg/dL Urine Occult Blood Trace-lysed H (NEGATIVE) Urine Nitrite Negative (NEGATIVE) Urine Bilirubin Negative (NEGATIVE) Urine Urobilinogen 1.0 (0.2-1.0) E.U./dL Ur Leukocyte Esterase Negative (NEGATIVE) Urine RBC 0-5 /HPF Urine WBC 0-5 /HPF Ur Epithelial Cells Occasional /LPF Urine Bacteria Occasional (NONE TO FEW) /HPF 08/23/17 08/23/17 Range/Units 06:28 06:28 WBC 10.4 H (4.0-10.2) K/uL RBC 5.06 (4.33-5.41) M/uL Hgb 14.8 D (13.1-16.8) g/dL Hct 43.6 (39.0-49.0) % MCV 86.2 (84.0-98.0) fL MCH 29.2 (28.2-33.3) pg MCHC 33.9 (31.7-36.0) g/dL RDW 14.7 H (11.2-14.1) % Plt Count 163 (150-350) K/uL Neut % (Auto) 60.8 (45.0-80.0) % Lymph % (Auto) 27.5 (10.0-50.0) % [place] % (Auto) 10.0 (2.0-14.0) % Eos % (Auto) 1.3 (0.0-5.0) % Baso % (Auto) 0.4 (0.0-2.0) % Neut # (Auto) 6.33 (1.40-7.00) K/uL Lymph # (Auto) 2.86 (0.50-3.50) K/uL [place] # (Auto) 1.04 H (0.00-1.00) K/uL Eos # (Auto) 0.13 (0.00-0.50) K/uL Baso # (Auto) 0.04 (0.00-0.20) K/uL PT (9.8-11.7) SEC INR APTT (22.1-29.8) SEC D-Dimer, Quantitative (0-400) ng/mL Sodium 144 (136-145) mmol/L Potassium 3.2 L (3.5-5.1) mmol/L Chloride 108 H (98-107) mmol/L Carbon Dioxide 29.3 (21.0-32.0) mmol/L BUN 25 H (7-18) mg/dL Creatinine 1.71 H (0.51-1.17) mg/dL Est Cr Clr Drug Dosing 52.22 Estimated GFR (MDRD) 43 mL/min Glucose 108 H (74-106) mg/dL Hemoglobin A1c (4.3-5.7) % Lactic Acid (0.4-2.0) mmol/L Calcium 8.6 (8.5-10.1) mg/dL Magnesium (1.8-2.4) mg/dL Total Bilirubin 0.5 (0.2-1.0) mg/dL AST 17 (15-37) U/L ALT 23 (12-78) U/L Alkaline Phosphatase 95 (46-116) IU/L Creatine Kinase 93 (26-308) U/L Creatine Kinase Index 0.8 (0.0-2.5) % CK-MB (CK-2) 0.70 (0.00-3.60) ng/mL Troponin I 0.000 (0.000-0.056) ng/mL NT-Pro-B Natriuret Pep 104 (0-125) pg/mL Total Protein 6.5 (6.4-8.2) g/dL Albumin 3.1 L (3.4-5.0) g/dL Triglycerides (30-150) mg/dL Cholesterol (100-200) mg/dL LDL Cholesterol, Calc (0-100) mg/dL HDL Cholesterol (40-60) mg/dL Specimen Type Urine Color Urine Appearance Urine pH (5.0-9.0) Ur Specific [place] (1.005-1.030) Urine Protein (NEGATIVE) mg/dL Urine Glucose (UA) (NEGATIVE) mg/dL Urine Ketones (NEGATIVE) mg/dL Urine Occult Blood (NEGATIVE) Urine Nitrite (NEGATIVE) Urine Bilirubin (NEGATIVE) Urine Urobilinogen (0.2-1.0) E.U./dL Ur Leukocyte Esterase (NEGATIVE) Urine RBC /HPF Urine WBC /HPF Ur Epithelial Cells /LPF Urine Bacteria (NONE TO FEW) /HPF GEOVANNI Results - Last 24 hrs: Microbiology 08/22/17 22:10 Urine Culture - Preliminary Urine, Clean Catch NO GROWTH AFTER 1 DAY Med Orders - Current: Current Medications Acetaminophen (Tylenol) 650 mg PO Q4H PRN PRN Reason: Pain Last Admin: 08/23/17 07:52 Dose: 650 mg Hydralazine HCl (Apresoline) 50 mg PO Q12HR [facility] Last Admin: 08/23/17 07:39 Dose: 50 mg Sodium Chloride (Normal Saline) 1,000 mls @ 30 mls/hr IV ASDIRECTED [facility] Last Admin: 08/22/17 23:10 Dose: 30 mls/hr Labetalol HCl (Normodyne) 100 mg PO Q2HR PRN PRN Reason: blood pressure control Last Admin: 08/23/17 13:10 Dose: 100 mg Potassium Chloride (Klor-Con M20) 20 meq PO TID [facility] Last Admin: 08/23/17 13:11 Dose: 20 meq Simvastatin (Zocor) 10 mg PO BEDTIME [facility] Last Admin: 08/22/17 23:19 Dose: 10 mg Sodium Chloride (Saline Flush) 10 ml FLUSH ASDIRECTED PRN PRN Reason: Keep Vein Open Last Admin: 08/22/17 17:24 Dose: 10 ml Sodium Chloride (Saline Flush) 10 ml FLUSH Q12HR PRN PRN Reason: Keep Vein Open Temazepam (Restoril) 15 mg PO BEDTIME PRN PRN Reason: Insomnia Discontinued Medications Aspirin (Aspirin) 324 mg CHEW ONETIME ONE Stop: 08/22/17 17:02 Last Admin: 08/22/17 17:16 Dose: 324 mg Famotidine (Pepcid) 40 mg IVPUSH ONETIME ONE Stop: 08/22/17 17:02 Last Admin: 08/22/17 17:16 Dose: 40 mg Ceftriaxone Sodium 1 gm/ (Sodium Chloride) 100 mls @ 200 mls/hr IV ONETIME ONE Stop: 08/22/17 19:53 Last Admin: 08/22/17 20:18 Dose: Not Given Nitroglycerin/Dextrose (Nitroglycerin 25 Mg/D5w 250 Ml) 25 mg in 250 mls @ 6 mls/hr IV TITRATE [facility] Last Infusion: 08/23/17 05:35 Dose: 20 mcg/min, 12 mls/hr Labetalol HCl (Normodyne) 200 mg PO ONETIME PRN PRN Reason: blood pressure control Last Admin: 08/23/17 10:12 Dose: 200 mg Lisinopril (Prinivil) 10 mg PO DAILY [facility] Last Admin: 08/23/17 07:39 Dose: 10 mg Metoprolol Tartrate (Lopressor) 5 mg IVPUSH ONETIME ONE Stop: 08/22/17 17:02 Last Admin: 08/22/17 17:16 Dose: 5 mg Metoprolol Tartrate (Lopressor) 5 mg IVPUSH ONETIME ONE Stop: 08/22/17 17:31 Last Admin: 08/22/17 17:35 Dose: 5 mg Metoprolol Tartrate (Lopressor) 50 mg PO Q12HR ONE Stop: 08/22/17 19:22 Last Admin: 08/22/17 20:10 Dose: 50 mg Nitroglycerin (Nitrostat) 0.4 mg SL ONETIME ONE Stop: 08/22/17 17:47 Last Admin: 08/22/17 17:50 Dose: 0.4 mg Nitroglycerin (Nitro-Bid 2%) 0.5 gm TOP Q6H [facility] Last Admin: 08/22/17 17:50 Dose: 0.5 gm Nitroglycerin (Nitro-Bid 2%) 0.5 gm TOP Q6H [facility] Last Admin: 08/23/17 07:40 Dose: 0.5 gm Potassium Chloride (Klor-Con M20) 20 meq PO TID [facility] Potassium Chloride (Klor-Con M20) 20 meq PO TID [facility] Ticagrelor (Brilinta) 180 mg PO ONETIME ONE Stop: 08/22/17 17:31 Last Admin: 08/22/17 17:34 Dose: 180 mg - Exam General: Reports: Alert, Oriented HEENT: Reports: Pupils Equal, Pupils Reactive, EOMI, Mucous Membr. Moist/[place] Neck: Reports: Supple Lungs: Reports: Clear to Auscultation, Normal Respiratory Effort, Crackles Cardiovascular: Reports: Regular Rate, Regular Rhythm GI/Abdominal Exam: Normal Bowel Sounds, Soft, Non-Tender, No Organomegaly, No Distention, No Abnormal Bruit, No Mass, Pelvis Stable (Male) Exam: No Hernia, Normal Inspection, Normal Prostate, Circumcised Rectal (Males) Exam: Deferred Back Exam: Reports: Normal Inspection, Full Range of Motion Extremities: Normal Inspection, Normal Range of Motion, Non-Tender, No Pedal Edema, Normal Capillary Refill Skin: Reports: Warm, Dry, Intact Neurological: Reports: No New Focal Deficit Psy/Mental Status: Reports: Alert, Normal Affect, Normal Mood
[2017-08-23] MEDS ORDERED: Labetalol 100 MG Tab PO ONE (17:06)
[2017-08-23] MEDS ORDERED: hydrALAZINE 50 MG Tab PO STA (17:08)
== END 2017-08-23 17:42 | disposition home or self-care (01) | DRG 305 ==
LOC: LL.ED 16:44 → LL.MS 18:45
PROVIDERS: ADMIT Family Medicine; ATTEND Family Medicine
DX: I16.9 Hypertensive crisis, unspecified (principal); H33.20 Serous retinal detachment, unspecified eye; I12.9 Hypertensive chronic kidney disease with stage 1 through stage 4 chronic kidney disease, or unspecified chronic kidney disease; E87.6 Hypokalemia; R73.9 Hyperglycemia, unspecified; I25.10 Atherosclerotic heart disease of native coronary artery without angina pectoris; M15.9 Polyosteoarthritis, unspecified; E78.5 Hyperlipidemia, unspecified; N18.3 Chronic kidney disease, stage 3 (moderate); G47.30 Sleep apnea, unspecified; G89.29 Other chronic pain; J44.9 Chronic obstructive pulmonary disease, unspecified; M54.2 Cervicalgia; H54.7 Unspecified visual loss; J30.9 Allergic rhinitis, unspecified; H26.9 Unspecified cataract; H40.9 Unspecified glaucoma; H91.90 Unspecified hearing loss, unspecified ear; H35.30 Unspecified macular degeneration; M54.9 Dorsalgia, unspecified; G62.9 Polyneuropathy, unspecified; F41.9 Anxiety disorder, unspecified; E03.9 Hypothyroidism, unspecified; D75.1 Secondary polycythemia; F17.210 Nicotine dependence, cigarettes, uncomplicated; Z98.1 Arthrodesis status; Z88.8 Allergy status to other drugs, medicaments and biological substances; Z79.82 Long term (current) use of aspirin; Z79.899 Other long term (current) drug therapy; Z91.19 Patient's noncompliance with other medical treatment and regimen; Z59.6 Low income
CPT/HCPCS: 36415; 71045; 80048; 80053; 80061; 81001; 82550; 82553; 83036; 83605; 83735; 83880; 84484; 85025; 85379; 85610; 85730; 87086; 93005; 96374; 96375; 99285; A9270-GY; J3490; J7030; J7050; S0028

== ENCOUNTER 2022-07-09 13:30 | Emergency (ER) | payer OTHER ==
[2022-07-09] MEDS ORDERED: Sodium Chloride 0.9% 10 ML Syringe FLUSH PRN (13:35)
[2022-07-09 14:00] LABS: CHLORIDE,CL 99 mmol/L (98-107); SODIUM,NA 137 mmol/L (136-145)
[2022-07-09 14:03] LABS: ANION GAP 10.7 meq/L (7-15); ESTIMATED GFR 39 mL/min (>=60)
[2022-07-09] MEDS: Potassium Chloride 20 MEQ Tab.ER PO ONE (14:52)
[2022-07-09] MEDS: Morphine 2 MG/ML SYRINGE ONE (15:36)
[2022-07-09] MEDS: Ondansetron 4 MG/2 ML SDV ONE (15:36)
[2022-07-09] MEDS: Take Home: Cyclobenzaprine 10 MG Tab, 4 Tab Pack PO ONE (15:52)
[2022-07-09] MEDS: Potassium Chloride 10 MEQ Tab.ER PO SCH (15:53)
[2022-07-09] MEDS ORDERED: Potassium Chloride 10 MEQ Tab.ER PO SCH (17:30)
== END 2022-07-09 16:01 | disposition home or self-care (01) ==
LOC: LL.ED 13:30
DX: S19.9XXA Unspecified injury of neck, initial encounter (principal); M54.12 Radiculopathy, cervical region; M19.90 Unspecified osteoarthritis, unspecified site; I12.9 Hypertensive chronic kidney disease with stage 1 through stage 4 chronic kidney disease, or unspecified chronic kidney disease; N18.30 Chronic kidney disease, stage 3 unspecified; F17.210 Nicotine dependence, cigarettes, uncomplicated; Z79.82 Long term (current) use of aspirin; Z79.899 Other long term (current) drug therapy; Z88.6 Allergy status to analgesic agent; V89.2XXA Person injured in unspecified motor-vehicle accident, traffic, initial encounter; Y92.410 Unspecified street and highway as the place of occurrence of the external cause
CPT/HCPCS: 36415; 70450; 72125; 80053; 81001; 82947; 83735; 85025; 93005; 99284; A9270-GY; J2270; J2405

== ENCOUNTER 2025-02-04 09:50 | Emergency (ER) | payer OTHER, BC ==
[2025-02-04 10:07] VITALS: BP 141/90; PULSE 79
[2025-02-04] MEDS: Bacitracin/Neomycin/Polymyxin B Oint 0.9 GM U/D Packet TOP ONE (10:33)
[2025-02-04] MEDS: Diphtheria,Pertussis(Acell),Tetanus Vaccine 0.5 ML Syringe IM ONE (11:00)
== END 2025-02-04 11:00 | disposition home or self-care (01) ==
LOC: LL.ED 09:50
DX: S62.522B Displaced fracture of distal phalanx of left thumb, initial encounter for open fracture (principal); I12.9 Hypertensive chronic kidney disease with stage 1 through stage 4 chronic kidney disease, or unspecified chronic kidney disease; N18.30 Chronic kidney disease, stage 3 unspecified; Z79.899 Other long term (current) drug therapy; Z79.82 Long term (current) use of aspirin; Z88.5 Allergy status to narcotic agent; Z23 Encounter for immunization; W23.0XXA Caught, crushed, jammed, or pinched between moving objects, initial encounter
CPT/HCPCS: 73140-FA; 90471; 90715; 99283-25